=== PATIENT | male | born 1945 | race Caucasian/White ===

== ENCOUNTER 2020-08-03 07:39 | Outpatient (REF) | payer BC, SELFPAY | END 2020-08-03 07:40 | disposition home or self-care (01) | LOC: HO.LAB 07:39 | PROVIDERS: Visit Provider Internal Medicine | DX: Z20.828 Contact with and (suspected) exposure to other viral communicable diseases (principal) | CPT/HCPCS: C9803; U0003 ==

== ENCOUNTER 2020-10-16 07:28 | Outpatient (REF) | payer MEDICARE, SELFPAY ==
[2020-10-16 12:17] LABS: Alanine Aminotransferase 29 U/L (0-40); Albumin Level 4.1 g/dL (3.5-5.0); Alkaline Phosphatase 89 U/L (39-117); Anion Gap 12 (12-20); Aspartate Amino Transferase 24 U/L (5-37); Bilirubin Total 0.6 mg/dL (0.0-1.0); Blood Urea Nitrogen 31 mg/dL (9-16); Calcium 9.2 mg/dL (8.4-10.2); Carbon Dioxide 33 mmol/L (22-29); Chloride 99 mmol/L (96-108); Cholesterol 219 mg/dL; Estimated Glomerular Filt Rate 55; Glucose Fasting 88 mg/dL (60-99); HDL Cholesterol 46 mg/dL; LDL Cholesterol Calculated 151 mg/dl; Potassium 5.3 mmol/L (3.3-5.1); Sodium 139 mmol/L (135-145); Total Protein 6.8 g/dL (6.5-8.0); Triglycerides 111 mg/dL
== END 2020-10-16 07:29 | disposition home or self-care (01) ==
LOC: HO.MANLR 07:28
PROVIDERS: PCP Internal Medicine; Visit Provider Physician Assistant
DX: N18.9 Chronic kidney disease, unspecified (principal)
CPT/HCPCS: 36415; 80053; 80061

== ENCOUNTER 2020-11-01 10:27 | Outpatient (REF) | payer MEDICARE, SELFPAY ==
[2020-11-01 13:31] LABS: Alanine Aminotransferase 26 U/L (0-40); Albumin Level 4.2 g/dL (3.5-5.0); Alkaline Phosphatase 104 U/L (39-117); Anion Gap 14 (12-20); Aspartate Amino Transferase 23 U/L (5-37); Bilirubin Total 0.4 mg/dL (0.0-1.0); Blood Urea Nitrogen 26 mg/dL (9-16); Calcium 9.5 mg/dL (8.4-10.2); Carbon Dioxide 34 mmol/L (22-29); Chloride 98 mmol/L (96-108); Estimated Glomerular Filt Rate > 60; Glucose Random 73 mg/dL (60-115); Potassium 5.1 mmol/L (3.3-5.1); Sodium 141 mmol/L (135-145)
== END 2020-11-01 10:28 | disposition home or self-care (01) ==
LOC: HO.MANLDS 10:27
PROVIDERS: PCP Internal Medicine; Visit Provider Physician Assistant
DX: E87.5 Hyperkalemia (principal)
CPT/HCPCS: 36415; 80053

== ENCOUNTER 2021-04-18 07:33 | Outpatient (REF) | payer MEDICARE, SELFPAY ==
[2021-04-18 12:12] LABS: Alanine Aminotransferase 23 U/L (0-40); Alkaline Phosphatase 83 U/L (39-117); Anion Gap 11 (12-20); Aspartate Amino Transferase 22 U/L (5-37); Bilirubin Total 0.5 mg/dL (0.0-1.0); Blood Urea Nitrogen 24 mg/dL (9-16); Calcium 9.6 mg/dL (8.4-10.2); Carbon Dioxide 33 mmol/L (22-29); Chloride 101 mmol/L (96-108); Cholesterol 209 mg/dL; Estimated Glomerular Filt Rate > 60; Glucose Fasting 82 mg/dL (60-99); HDL Cholesterol 49 mg/dL; LDL Cholesterol Calculated 136 mg/dl; Potassium 4.4 mmol/L (3.3-5.1); Sodium 141 mmol/L (135-145); Total Protein 6.8 g/dL (6.5-8.0); Triglycerides 120 mg/dL
== END 2021-04-18 07:34 | disposition home or self-care (01) ==
LOC: HO.MANLDS 07:33
PROVIDERS: PCP Internal Medicine; Visit Provider Physician Assistant
DX: N18.9 Chronic kidney disease, unspecified (principal)
CPT/HCPCS: 36415; 80053; 80061

== ENCOUNTER 2021-11-07 08:22 | Outpatient (REF) | payer MEDICARE, SELFPAY ==
[2021-11-07 11:28] LABS: Cholesterol 209 mg/dL; HDL Cholesterol 44 mg/dL; LDL Cholesterol Calculated 142 mg/dl; Triglycerides 117 mg/dL
== END 2021-11-07 08:23 | disposition home or self-care (01) ==
LOC: HO.MANLDS 08:22
PROVIDERS: PCP Physician Assistant; Visit Provider Physician Assistant
DX: N18.9 Chronic kidney disease, unspecified (principal)
CPT/HCPCS: 36415; 80061

== ENCOUNTER 2022-02-09 11:10 | Outpatient (REF) | payer MEDICARE, SELFPAY ==
[2022-02-09 13:12] LABS: Free T4 (Free Thyroxine) 1.03 ng/dL (0.71-1.85)
== END 2022-02-09 11:11 | disposition home or self-care (01) ==
LOC: HO.MANLDS 11:10
PROVIDERS: Visit Provider Physician Assistant
DX: E04.1 Nontoxic single thyroid nodule (principal)
CPT/HCPCS: 36415; 84439; 84443

== ENCOUNTER 2022-02-18 09:56 | Outpatient (REF) | payer MEDICARE, SELFPAY ==
[2022-02-18 12:02] LABS: Iron 73 mcg/dL (45-160); Percent Iron Saturation 27 % (15-50); Total Iron Binding Capacity 274 mcg/dL (228-428); Unsaturated Iron Binding 201 ug/dL
[2022-02-18 12:06] LABS: Ferritin 191 ng/mL (20-250)
== END 2022-02-18 09:57 | disposition home or self-care (01) ==
LOC: HO.MANLDS 09:56
PROVIDERS: Visit Provider Physician Assistant
DX: D64.9 Anemia, unspecified (principal)
CPT/HCPCS: 36415; 82728; 83540

== ENCOUNTER 2022-05-12 08:43 | Outpatient (REF) | payer MEDICARE, SELFPAY ==
[2022-05-12 11:36] LABS: Cholesterol 216 mg/dL; HDL Cholesterol 48 mg/dL; LDL Cholesterol Calculated 145 mg/dl; Triglycerides 115 mg/dL
== END 2022-05-12 08:44 | disposition home or self-care (01) ==
LOC: HO.MANLDS 08:43
PROVIDERS: Visit Provider Physician Assistant
DX: E78.2 Mixed hyperlipidemia (principal)
CPT/HCPCS: 36415; 80061

== ENCOUNTER 2022-11-11 07:36 | Outpatient (REF) | payer MEDICARE, SELFPAY ==
[2022-11-11 08:49] LABS: MANUAL DIFF FLAG NO
[2022-11-11 11:49] LABS: Estimated Average Glucose 108 mg/dL; Hemoglobin A1c % 5.4 %
[2022-11-11 11:53] LABS: Basophils Percent Auto 0.5 % (0-2); Eosinophils Absolute Auto 0.2 X10*3/uL (0.0-0.4); Eosinophils Percent Auto 5.1 % (0-4); Hematocrit 39.4 % (42.0-52.0); Hemoglobin 12.8 g/dl (14.0-18.0); Lymphocytes Absolute Auto 1.3 X10*3/uL (1.2-4.9); Mean Corpuscular HGB Conc 32.5 g/dl (31.0-36.0); Mean Corpuscular Hemoglobin 29.2 pg (27.0-33.0); Mean Platelet Volume 9.6 fL (9.4-12.4); Monocytes Absolute Auto 0.4 X10*3/uL (0.1-1.2); Monocytes Percent Auto 10.4 % (2-11); Neutrophils Absolute Auto 1.9 x10*3/uL (2.0-8.3); Platelet Count 196 X10*3/uL (160-400); Red Blood Count 4.38 X10*6/uL (4.60-5.80); Red Cell Distribution Width 12.8 % (11.0-16.0); White Blood Count 3.7 X10*3/uL (4.8-10.8)
[2022-11-11 12:24] LABS: Alanine Aminotransferase 29 U/L (0-40); Alkaline Phosphatase 101 U/L (39-117); Anion Gap 14 (12-20); Aspartate Amino Transferase 29 U/L (5-37); Bilirubin Total 0.7 mg/dL (0.0-1.0); Blood Urea Nitrogen 27 mg/dL (9-16); Calcium 9.6 mg/dL (8.4-10.2); Carbon Dioxide 30 mmol/L (22-29); Chloride 103 mmol/L (96-108); Cholesterol 210 mg/dL; Estimated Glomerular Filt Rate 59; Glucose Random 93 mg/dL (60-115); HDL Cholesterol 46 mg/dL; LDL Cholesterol Calculated 141 mg/dl; Potassium 4.9 mmol/L (3.3-5.1); Prostate Specific Antigen 5.66 ng/mL (<0.05-4.0); Sodium 142 mmol/L (135-145); Total Protein 6.7 g/dL (6.5-8.0); Triglycerides 119 mg/dL
== END 2022-11-11 07:37 | disposition home or self-care (01) ==
LOC: HO.MANLDS 07:36
PROVIDERS: Visit Provider Physician Assistant
DX: Z12.5 Encounter for screening for malignant neoplasm of prostate (principal); I10 Essential (primary) hypertension
CPT/HCPCS: 36415; 80053; 80061; 83036; 84153; 85025

== ENCOUNTER 2023-02-16 | Outpatient (REF) | payer MEDICARE, SELFPAY ==
[2023-02-16 12:08] LABS: Alanine Aminotransferase 45 U/L (0-40); Albumin Level 4.1 g/dL (3.5-5.0); Alkaline Phosphatase 91 U/L (39-117); Anion Gap 14 (12-20); Aspartate Amino Transferase 38 U/L (5-37); Bilirubin Total 0.6 mg/dL (0.0-1.0); Blood Urea Nitrogen 27 mg/dL (9-16); Carbon Dioxide 30 mmol/L (22-29); Chloride 103 mmol/L (96-108); Cholesterol 129 mg/dL; Estimated Glomerular Filt Rate > 60; Glucose Random 93 mg/dL (60-115); HDL Cholesterol 47 mg/dL; LDL Cholesterol Calculated 66 mg/dl; Potassium 4.5 mmol/L (3.3-5.1); Sodium 142 mmol/L (135-145); Total Protein 7.2 g/dL (6.5-8.0); Triglycerides 81 mg/dL
== END 2023-02-16 00:01 | disposition home or self-care (01) ==
LOC: HO.MANLDS
PROVIDERS: Visit Provider Physician Assistant
DX: I10 Essential (primary) hypertension (principal)
CPT/HCPCS: 36415; 80053; 80061

== ENCOUNTER 2023-09-03 07:28 | Outpatient (REF) | payer MEDICARE, SELFPAY | END 2023-09-03 07:29 | disposition home or self-care (01) | LOC: HO.MANLDS 07:28 | PROVIDERS: Visit Provider Physician Assistant | DX: I13.0 Hypertensive heart and chronic kidney disease with heart failure and stage 1 through stage 4 chronic kidney disease, or unspecified chronic kidney disease (principal); N18.9 Chronic kidney disease, unspecified; I50.9 Heart failure, unspecified; E78.5 Hyperlipidemia, unspecified | CPT/HCPCS: 36415; 80053; 80061; 82306; 85025 ==

== ENCOUNTER 2023-10-27 10:19 | Outpatient (REF) | payer MEDICARE, SELFPAY ==
[2023-10-27 12:44] LABS: MANUAL DIFF FLAG NO
[2023-10-27 13:07] LABS: Basophils Percent Auto 0.7 % (0-2); Eosinophils Absolute Auto 0.2 X10*3/uL (0.0-0.4); Eosinophils Percent Auto 5.1 % (0-4); Hematocrit 38.9 % (42.0-52.0); Hemoglobin 12.8 g/dl (14.0-18.0); Imm Gran Abs Auto 0.01 X10*3/uL (0.00-0.03); Imm Gran Pct Auto 0.2 % (0.0-0.4); Lymphocytes Absolute Auto 1.3 X10*3/uL (1.2-4.9); Lymphocytes Percent Auto 29.2 % (20-40); Mean Corpuscular HGB Conc 32.9 g/dl (31.0-36.0); Mean Corpuscular Hemoglobin 29.2 pg (27.0-33.0); Mean Corpuscular Volume 88.6 fL (80.0-98.0); Mean Platelet Volume 9.6 fL (9.4-12.4); Monocytes Absolute Auto 0.5 X10*3/uL (0.1-1.2); Monocytes Percent Auto 12.2 % (2-11); Neutrophils Absolute Auto 2.3 x10*3/uL (2.0-8.3); Neutrophils Percent Auto 52.6 % (45-73); Platelet Count 184 X10*3/uL (160-400); Red Blood Count 4.39 X10*6/uL (4.60-5.80); Red Cell Distribution Width 12.5 % (11.0-16.0); White Blood Count 4.4 X10*3/uL (4.8-10.8)
[2023-10-27 13:09] LABS: Alanine Aminotransferase 43 U/L (0-40); Albumin Level 4.1 g/dL (3.5-5.0); Alkaline Phosphatase 98 U/L (39-117); Anion Gap 8 (12-20); Aspartate Amino Transferase 41 U/L (5-37); Bilirubin Total 0.6 mg/dL (0.0-1.0); Blood Urea Nitrogen 27 mg/dL (9-16); Calcium 10.1 mg/dL (8.4-10.2); Carbon Dioxide 33 mmol/L (22-29); Chloride 102 mmol/L (96-108); Estimated Glomerular Filt Rate > 60; Glucose Random 89 mg/dL (60-115); Potassium 4.3 mmol/L (3.3-5.1); Sodium 139 mmol/L (135-145); Total Protein 7.3 g/dL (6.5-8.0)
[2023-10-31 22:09] LABS: NT-proBNP 100 pg/mL (<450)
== END 2023-10-27 10:20 | disposition home or self-care (01) ==
LOC: HO.MANLDS 10:19
PROVIDERS: Visit Provider Physician Assistant
DX: R05.2 Subacute cough (principal)
CPT/HCPCS: 36415; 80053; 83880; 85025

== ENCOUNTER 2024-03-27 07:28 | Outpatient (REF) | payer MEDICARE, SELFPAY ==
[2024-03-27 07:50] LABS: MANUAL DIFF FLAG NO
[2024-03-27 08:43] LABS: Basophils Percent Auto 0.5 % (0-2); Eosinophils Absolute Auto 0.2 X10*3/uL (0.0-0.4); Hematocrit 39.7 % (42.0-52.0); Hemoglobin 13.2 g/dl (14.0-18.0); Imm Gran Abs Auto 0.01 X10*3/uL (0.00-0.03); Imm Gran Pct Auto 0.2 % (0.0-0.4); Lymphocytes Absolute Auto 1.2 X10*3/uL (1.2-4.9); Mean Corpuscular HGB Conc 33.2 g/dl (31.0-36.0); Mean Corpuscular Hemoglobin 29.8 pg (27.0-33.0); Mean Corpuscular Volume 89.6 fL (80.0-98.0); Mean Platelet Volume 9.4 fL (9.4-12.4); Monocytes Absolute Auto 0.4 X10*3/uL (0.1-1.2); Monocytes Percent Auto 9.9 % (2-11); Neutrophils Absolute Auto 2.2 x10*3/uL (2.0-8.3); Neutrophils Percent Auto 55.4 % (45-73); Platelet Count 180 X10*3/uL (160-400); Red Blood Count 4.43 X10*6/uL (4.60-5.80); Red Cell Distribution Width 12.6 % (11.0-16.0)
[2024-03-27 09:21] LABS: Alanine Aminotransferase 37 U/L (0-40); Albumin Level 4.2 g/dL (3.5-5.0); Alkaline Phosphatase 93 U/L (39-117); Anion Gap 11 (12-20); Aspartate Amino Transferase 36 U/L (5-37); Bilirubin Total 0.6 mg/dL (0.0-1.0); Blood Urea Nitrogen 22 mg/dL (9-16); Carbon Dioxide 31 mmol/L (22-29); Chloride 102 mmol/L (96-108); Cholesterol 128 mg/dL (<200); Estimated Glomerular Filt Rate 59; Glucose Random 98 mg/dL (60-115); HDL Cholesterol 51 mg/dL (>40); LDL Cholesterol Calculated 59 mg/dL (<100); Potassium 4.3 mmol/L (3.3-5.1); Sodium 140 mmol/L (135-145); Total Protein 7.1 g/dL (6.5-8.0); Triglycerides 90 mg/dL (<150)
[2024-03-27 09:40] LABS: Vitamin D 25-OH Total 50.9 ng/mL (>30)
== END 2024-03-27 07:29 | disposition home or self-care (01) ==
LOC: HO.LAB 07:28
PROVIDERS: PCP Internal Medicine; Visit Provider Physician Assistant
DX: I13.0 Hypertensive heart and chronic kidney disease with heart failure and stage 1 through stage 4 chronic kidney disease, or unspecified chronic kidney disease (principal); N18.9 Chronic kidney disease, unspecified; E78.5 Hyperlipidemia, unspecified
CPT/HCPCS: 36415; 80053; 80061; 82306; 85025

== ENCOUNTER 2024-07-18 10:07 | Outpatient (REF) | payer MEDICARE, SELFPAY ==
[2024-07-18 14:33] LABS: Alanine Aminotransferase 47 U/L (0-40); Alkaline Phosphatase 101 U/L (39-117); Anion Gap 9 (12-20); Aspartate Amino Transferase 43 U/L (5-37); Bilirubin Total 0.6 mg/dL (0.0-1.0); Blood Urea Nitrogen 23 mg/dL (9-16); Calcium 9.2 mg/dL (8.4-10.2); Carbon Dioxide 34 mmol/L (22-29); Chloride 102 mmol/L (96-108); Estimated Glomerular Filt Rate 58; Glucose Random 85 mg/dL (60-115); Potassium 3.9 mmol/L (3.3-5.1); Sodium 141 mmol/L (135-145); Total Protein 6.9 g/dL (6.5-8.0)
== END 2024-07-18 10:08 | disposition home or self-care (01) ==
LOC: HO.MANLDS 10:07
PROVIDERS: Visit Provider Physician Assistant
DX: I13.0 Hypertensive heart and chronic kidney disease with heart failure and stage 1 through stage 4 chronic kidney disease, or unspecified chronic kidney disease (principal); N18.9 Chronic kidney disease, unspecified; I50.9 Heart failure, unspecified
CPT/HCPCS: 36415; 80053

== ENCOUNTER 2024-10-23 08:23 | Outpatient (REF) | payer MEDICARE, SELFPAY ==
--- OUTSIDE RECORDS SUMMARY | 2024-10-23 08:42 | XMS_ITS | Clinical Summary ---
Author Organization [facility] Address [address] [place] [address] Care Team Providers Care [employer] Name Role Phone Joe Virgen DO Primary Care Provider [phone] Allergies Active Allergy Reactions Criticality Noted Date Comments Codeine Other (See Comments) 08/02/2017 Oxycodone Other (See Comments) 12/01/2017 Medications Medication Sig Dispensed Refills Start Date End Date Status dilTIAZem (TIAZAC) 300 MG 24 hr capsule Take 300 mg by mouth. 0 Active dilTIAZem (CARDIZEM CD) 300 MG 24 hr capsule take 1 capsule by mouth once daily 0 12/14/2017 Active hydrALAZINE (APRESOLINE) 25 MG tablet Take 25 mg by mouth. 0 Active hydrALAZINE (APRESOLINE) 25 MG tablet 0 11/27/2017 Active indomethacin (INDOCIN SR) 75 MG CR capsule 0 11/27/2017 Acti ve lisinopril (PRINIVIL,ZESTRIL) tablet 40 mg 0 11/27/2017 Active Multiple Vitamin (MULTI-VITAMIN) Take 1 tablet by mouth. 0 Active spironolactone (ALDACTONE) tablet 25 mg 0 11/27/2017 Active traMADol (ULTRAM) 50 MG tablet Take 50 mg by mouth. 0 12/10/2017 Active Active Problems Problem Noted Date Diagnosed Date Elevated prostate specific antigen (PSA) Hydrocele, unspecified Family History Medical History Relation Name Comments Hypertension Mother Relation Name Status Comments Mother Social History Tobacco Use Types Packs/Day Years Used Date Smoking Tobacco: Never Smokeless Tobacco: Never Sex and Gender Information Value Date Recorded Sex Assigned at Not on file Gender Identity Not on file Sexual Orientation Not on file Last Filed Vital Signs Vital Sign Reading Time Taken Comments Blood Pressure - - Pulse - - Temperature - - Respiratory Rate - - Oxygen Saturation - - Inhaled Oxygen Concentration - - Weight 119.8 kg (264 lb 3.2 oz) 018 10:28 AM EDT Height 170.2 cm (5' 7 ) 12/24/2017 10:2 8 AM EDT Body Mass Index 41.38 12/24/2017 10:28 AM EDT Plan of Treatment Health Maintenance Due Date Last Done Comments Hepatitis C Screening 1945 COVID-19 Vaccine (#1) 1947 Depression Screening 1959 Preventative Health Evaluation 1965 DTap / Tdap / Td (1 - Tdap) 1966 Shingrix-Zoster Vaccine (1 of 2) 1997 Fall Risk Assessment 2012 Pneumococcal Vaccine (1 of 1 - PCV) 2012 RSV Adult > 60+ Yrs or Pregn ant (1 - 1-dose 75+ series) 2022 Influenza Vaccine (#1) 2024 Hepatitis B Vaccines Aged Out No long er eligible based on patient's age to complete this topic RSV Ped < 20 months Aged Out No longe r eligible based on patient's age to complete this topic Care Teams [employer] Relationship Specialty Start Date End Date Joe Virgen DO [address] [place] [address] PCP - General Internal Medicine 12/16/17
--- OUTSIDE RECORDS SUMMARY | 2024-10-23 08:43 | XMS_ITS | Data Portability ---
Author Organization [facility], Home Service Address [address] [place] [address] Assessment Encounter Date Assessment Date Assessment LastModified by Organization Details LastModified Time 09/08/2023 09/08/2023 Patient agreed and verbally consents to this audio and video Telehealth appt via a secure platform [email or web address] Not available 09/08/2023 16:03:48 Plan of Treatment Reminders Order Date Submit Date Provider Last Modified By Organization Details Last Modified Time Details Appointments FOLLOW UP 15 2024 10:30A LIYAH ROQUE Not available Not available Not available Lab CMP, serum or plasma 2023 024 [facility], [address] [place] [address], [id number], 11/26/2023 09:37:12 lipid panel, serum 2023 024 [facility], [address] [place] [address], [id number], 11/26/2023 09:37:12 CBC w/ auto diff 2023 024 [facility], [address] [place] [address], [id number], 11/26/2023 09:37:12 CMP, serum or plasma 2023 024 [facility], [address] [place] [address], [id number], 10/28/2023 11:18:07 CBC w/ auto diff 2023 [facility], [address] [place] [address], [place], [address], 10/28/2023 11:18:07 pro BNP (pro B-type natriuret ic peptide), serum or plasma 2023 [facility], [address] [place] [address], [place], [address], 11/01/2023 11:40:23 Referral None recorded. Procedures None recorded. Surgeries None recorded. Imaging None recorded. Medication Orders loratadin e 10 mg tablet 2023 [facility] #[id number], [address], [place], [id number], 07/21/2024 12:00:55 bupropion HCl XL 300 mg 24 hr tablet, extended release 2023 [facility] #36608, [address], [place], [id number], 11/26/2023 09:34:18 prednison e 10 mg tablet [address] [facility] #05314, [address], [place], [id number], 11/26/2023 09:32:54 bupropion HCl SR 150 mg tablet,12 hr sustained -release [address] [facility] #04365, [address], [place], [id number], 11/26/2023 09:33:52 albuterol sulfate HFA 90 mcg/actua tion aerosol inhaler 2023 [facility] #51792, [address], [place], [id number], 10/27/2023 10:00:19 amoxicill in 500 mg tablet 2023 024 [email or web address] [facility] #61419, [address], [place], [id number], 07/21/2024 11:30:22 bupropion HCl SR 100 mg tablet,12 hr sustained -release 2023 024 [email or web address] [facility] #08986, [address], [place], [id number], 10/27/2023 10:03:17 Patient TargetsNo targets recorded. Patient Instructions Encounter Date Encounter Id Patient Instructions Last Modified By Organization Details Last Modified Time 04/14/2024 [id number] jerica [email or web address] Not available 03/01 11:05:37 Reason for Referral None Reported. Results Created Date Observation Date Name Description Value Unit Range Abnormal Flag Note LastModifiedBy Organization Detail LastModifiedTime 09/20/1909/17/2023 US, carot id arter y No observ [facility], [address], 09/20/2023 16:55:25 09/22/19 24 09/15/2023 trans -thor acic echoc ardio gram (TTE) (PROC ) No observ ation record ed. [email or web address] [facility], [address], 09/23/2023 21:44:30 Result Notes None recorded. Problems Name Problem SNOMED Code Status Onset Date Resolution Date Notes Provider Name and Address Organization Details Recorded Time Ventricul ar premature beats 53543110 Active 2018 Not Available [facility] 3 11:53:41 Aortic valve stenosis 94621803 Active 2018 mild per echo 9 Not Available [facility] 3 11:53:41 Essential hypertens ion 88484586 Active 2017 Not Available [facility] 3 11:53:41 Osteoarth ritis 252787685 Active 2017 Not Available [facility] 3 11:53:41 History of left total knee replaceme nt 947769972020 9105 Active 2017 Not Available [facility] 3 11:53:41 Anemia 537050187 Active 2017 Not Available [facility] 3 11:53:41 Impaired fasting glycemia 590517592 Active 2017 Not Available [facility] 3 11:53:41 Joint pain 65649465 Active 2017 Not Available [facility] 3 11:53:41 Chronic kidney disease 559379749 Active 2017 Not Available [facility] 3 11:53:41 Diastasis recti 63948034 Active 2020 Not Available [facility] 3 11:53:41 Thyroid nodule 782669597 Active 2021 Not Available [facility] 3 11:53:41 Hordeolum externum of lower eyelid of right eye 979856977717 104 Active 2021 Not Available [facility] 3 11:53:41 Thoracic back pain 697468755 Active 2021 Not Available [facility] 3 11:53:41 Low back pain 652142409 Active 2021 Not Available [facility] 3 11:53:41 Flank pain 715349195 Active 2021 Not Available [facility] 3 11:53:41 Hypertrig lyceridem ia 645959191 Active 2021 Not Available [facility] 3 11:53:41 Cough 85977808 Active 2021 Not Available [facility] 3 11:53:41 Constipat ion 54109351 Active 2021 Not Available [facility] 3 11:53:41 Gout 77212040 Active 2022 Not Available [facility] 3 11:53:41 Dupuytren 's contractu re of finger 634416992 Active 2022 Not Available [facility] 3 11:53:41 Carotid artery stenosis 21579144 Active 2022 Not Available [facility] 3 11:53:41 Carotid artery stenosis 12736917 Active 2022 Not Available [facility] 3 11:53:41 Prostate specific antigen above reference range 576962932 Active 2022 Not Available [facility] 3 11:53:41 Edema of lower extremity 177859104 Active 2022 Not Available [facility] 3 11:53:40 Osteoarth ritis of knee 800582129 Active 2022 Not Available [facility] 3 11:53:41 Degenerat lorenza joint disease of hand 44417106 Active 2022 Not Available [facility] 3 11:53:41 Degenerat lorenza joint disease of hand 42660123 Active 2022 Not Available [facility] 3 11:53:41 Contractu re of joint of hand 52126731 Active 2022 Not Available [facility] 3 11:53:41 Contractu re of joint of hand 17524839 Active 2022 Not Available [facility] 3 11:53:41 Benign prostatic hyperplas ia 100078935 Active 2022 Not Available [facility] 3 11:53:41 Hyperlipi demia 30871798 Active 2022 Not Available [facility] 3 11:53:41 Anxiety 45531924 Active 2023 LIYAH RODRIGUEZ [address] [place], [address], [facility] 4 16:04:57 Respirato ry tract congestio n and cough 295100210 Active 2023 LIYAH RODRIGUEZ [address] [place], [address], [facility] 4 09:58:50 Wheezing 30510620 Active 2023 LIYAH RODRIGUEZ [address] [place], [address], [facility] 4 10:08:28 Neuropath y 270812118 Active 2023 LIYAH RODRIGUEZ [address] [place], [address], [facility] 4 10:09:38 Allergic rhinitis 72557263 Active 2023 LIYAH RODRIGUEZ [address] [place], [address], [facility] 4 12:00:12 Acute bronchiti s 41473286 Active 2023 LIYAH RODRIGUEZ [address] [place], [address], [facility] 4 11:45:21 Problem Notes None recorded. Procedures Surgical History None recorded. Imaging Results Imaging Date Name Status LastModified by Organization Details LastModified Time 09/17/2023 , carotid artery completed [email or web address] [address], [address], 09/20/2023 16:55:25 09/15/2023 trans-thoracic echocardiogram (TTE) (PROC) completed [email or web address] [address], [address], 09/23/2023 21:44:30 Procedure Notes None recorded. Medical Equipment None Reported. Allergies Allergen ID Allergen Name Allergen Category Reaction Reaction Severity Criticality Documentation Date Start Date Code Code System Note Provider Name and Address Organization Details Recorded Time 72 codeine medicatio n nausea Not available Not available 10/27/2017 2670 RxNorm Joe lazcano [facility] 8 12:16:49 73 oxycodone medicatio n vomiting Not available Not available 10/27/2017 7804 RxNorm Lorraine lazcano [place] [facility] 8 12:20:58 74 acetamino phen / oxycodone medicatio n hallucina tions Not available Not available 10/27/2017 33392 3 RxNorm Lorraine lazcano [facility] 8 12:21:21 Medications Name Sig Start Date Stop Date Status Note LastModified by Organization Details LastModified Time turmeric 450mg capsules TAKE 2 CAPSULES DAILY BY MOUTH active Not Available Not Available No t Available losartan 50 mg tablet TAKE 1 TABLET BY MOUTH DAILY active Not Available Not Available No t Available furosemid e 40 mg tablet TAKE 1 TABLET BY MOUTH EVERY DAY NEEDED 10/28 completed Not Available Not Available Not Available desonide 0.05 % topical cream APPLY TWICE DAILY TO NOSE AND EYEBROWS FOR 2 WEEK THEN NEEDED 11/16 completed Not Available Not Available Not Available bupropion HCl SR 150 mg tablet,12 hr sustained -release TAKE 1 TABLET BY MOUTH EVERY DAY 11/25 completed Not Available Not Available Not Available prednison e 10 mg tablet 40 mg x 2 days30 mg x 2 days20 mg x 2 days10 mg x 2 days active Not Available Not Available No t Available ketoconaz ole 2 % shampoo APPLY SHAMPOO 2 TO 4 TIMES PER WEEK. ALTERNAT E WITH NORMAL SHAMPOO active Not Available Not Available No t Available omega-3 fatty acids 1,000 mg capsule Take 1 capsule every day by oral route for 90 days. 2021 active Not Available Not Available Not Avai lable lisinopri l 20 mg-hydroc hlorothia zide 12.5 mg tablet 11/30 completed Not Available Not Available Not Available azithromy rosalina 250 mg tablet 09/25 completed Not Available Not Available Not Available fluoroura cil 5 % topical cream APPLY TWICE DAILY TO ROUGH AREAS ON FOREHEAD FOR 14 DAYS. EXPECT REDNESS AND IRRITATI ON. AVOID SUN EXPOSURE active Not Available Not Available No t Available hydralazi ne 25 mg tablet TAKE 1 TABLET BY MOUTH THREE TIMES DAILY 02/09 completed Not Available Not Available Not Available diltiazem ER 300 mg capsule,2 4 hr,extend ed release TAKE 1 CAPSULE BY MOUTH EVERY DAY 07/27 completed Not Available Not Available Not Available clopidogr el 75 mg tablet TAKE 1 TABLET BY MOUTH EVERY DAY 10/27 completed Not Available Not Available Not Available tramadol 50 mg tablet TAKE 2 TABLETS BY MOUTH EVERY 4 TO 6 HOURS FOR 14 DAYS NEEDED 07/21 completed Not Available Not Available Not Available spironola ctone 25 mg tablet 02/04 completed Not Available Not Available Not Available bupropion HCl SR 100 mg tablet,12 hr sustained -release TAKE 1 TABLET BY MOUTH EVERY DAY 10/27 completed Not Available Not Available Not Available amoxicill in 500 mg tablet TAKE 1 TABLET BY MOUTH EVERY 8 HOURS FOR 4 DAYS 07/21 completed Not Available Not Available Not Available lidocaine -prilocai ne 2.5 %-2.5 % topical cream APPLY TOPICALL Y TO THE AFFECTED AREA 1 TIME FOR 1 DOSE 11/16 completed Not Available Not Available Not Available cefadroxi l 500 mg capsule TAKE 1 CAPSULE BY MOUTH TWICE DAILY 04/23 completed Not Available Not Available Not Available diltiazem CD 300 mg capsule,e xtended release 24 hr TAKE 1 CAPSULE BY MOUTH EVERY DAY 07/27 completed Not Available Not Available Not Available erythromy rosalina 5 mg/gram (0.5 %) eye ointment APPLY 1 CM RIBBON INTO THE LOWER CONJUNCT IVAL SAC(S) IN THE AFFECTED EYE(S) BY OPHTHALM IC ROUTE 3 TIMES PER DAY 05/22 completed Not Available Not Available Not Available omeprazol e 20 mg capsule,d elayed release TAKE 1 CAPSULE BY MOUTH EVERY MORNING 1 HOUR BEFORE MEALS 10/28 completed Not Available Not Available Not Available hydrocort isone 2.5 % topical cream APPLY TWICE DAILY TO NOSE AND EYEBROWS FOR 2 WEEKS THEN NEEDED active Not Available Not Available No t Available hydralazi ne 50 mg tablet TAKE 3 TABLETS BY MOUTH EVERY DAY active Not Available Not Available No t Available desonide 0.05 % lotion 12/19 completed Not Available Not Available Not Available furosemid e 20 mg tablet TAKE 1 TABLET BY MOUTH TWICE DAILY NEEDED active Not Available Not Available No t Available azelastin e 137 mcg (0.1 %) nasal spray USE 2 SPRAYS IN EACH NOSTRIL TWICE DAILY DIRECTED active Not Available Not Available No t Available albuterol sulfate HFA 90 mcg/actua tion aerosol inhaler INHALE 2 PUFFS BY MOUTH EVERY 4 HOURS NEEDED active Not Available Not Available No t Available colchicin e 0.6 mg tablet TAKE 1 TABLET BY MOUTH EVERY DAY NEEDED active Not Available Not Available No t Available indometha rosalina ER 75 mg capsule,e xtended release TAKE 1 CAPSULE BY MOUTH DAILY WITH FOOD 07/27 completed 05/22/22 - cutting back Not Available Not Available Not Available lisinopri l 40 mg tablet TAKE 1 TABLET BY MOUTH EVERY DAY 07/27 completed Not Available Not Available Not Available fluticaso ne propionat e 50 mcg/actua tion nasal spray,sh[employer] pension SHAKE LIQUID AND USE 2 SPRAYS IN EACH NOSTRIL EVERY DAY active Not Available Not Available No t Available loratadin e 10 mg tablet Take 1 tablet every day by oral route for 90 days. 2023 active Not Available Not Available Not Avai lable ciclopiro x 1 % shampoo 12/19 completed Not Available Not Available Not Available rosuvasta tin 20 mg tablet TAKE 1 TABLET BY MOUTH EVERY DAY active Not Available Not Available No t Available bupropion HCl XL 300 mg 24 hr tablet, extended release TAKE 1 TABLET BY MOUTH EVERY DAY active Not Available Not Available No t Available aspirin TAKE ONE 81 TAB QD active Not Available Not Available No t Available Multivita min 50 Plus take once a day active Not Available Not Available No t Available omega-3 fatty acids-fis h oil 300 mg-1,000 mg capsule TAKE 1 CAPLET BY MOUTH DAILY 11/16 completed Not Available Not Available Not Available Prevnar 13 (PF) 0.5 mL intramusc ular syringe 12/19 completed Not Available Not Available Not Available turmeric 450 mg-turmer ic root extract 50 mg capsule TAKE 2 CAPSULES BY MOUTH EVERY DAY active Not Available Not Available No t Available Fluad 65yr up(PF)45 mcg(15 mcgx3)/0. 5 mL intramusc ular syringe 02/04 completed Not Available Not Available Not Available Shingrix (PF) 50 mcg/0.5 mL intramusc ular suspensio n, kit 04/23 completed Not Available Not Available Not Available Fluad 65yr up(PF)45 mcg(15 mcgx3)/0. 5 mL intramusc ular syringe 12/19 completed Not Available Not Available Not Available omega-3 300 mg-dha 120 mg-epa 180 mg-fish oil 1,000 mg capsule TAKE 1 CAPSULE BY MOUTH DAILY active Not Available Not Available No t Available Vitals Date Recorded Body height Body mass index (BMI) Body weight Heart rate Oxygen saturation Oxygen saturation in Arterial blood by Pulse oximetry Systolic blood pressure Diastolic blood pressure Provider Name and Address Organization Details Last Updated DateTime 4 169.55 cm 37.6 kg/m2 934270. 98 g 77 /min 98 % 98 % 120 mm[Hg] 60 mm[Hg] Esme Peraza [facility] 4 09:51:44 Date Recorded Body height Body mass index (BMI) Body weight Heart rate Oxygen saturation Oxygen saturation in Arterial blood by Pulse oximetry Systolic blood pressure Diastolic blood pressure Provider Name and Address Organization Details Last Updated DateTime 4 169.55 cm 37.6 kg/m2 604905. 98 g 71 /min 100 % 100 % 130 mm[Hg] 70 mm[Hg] Esme Peraza [facility] 4 09:29:28 Date Recorded Body height Body mass index (BMI) Body weight Heart rate Oxygen saturation Oxygen saturation in Arterial blood by Pulse oximetry Systolic blood pressure Diastolic blood pressure Provider Name and Address Organization Details Last Updated DateTime 4 169.55 cm 38 kg/m2 808822. 04 g 74 /min 96 % 96 % 130 mm[Hg] 74 mm[Hg] Aliza Mendes [facility] 4 10:29:44 Date Recorded Body height Body mass index (BMI) Body weight Heart rate Oxygen saturation Oxygen saturation in Arterial blood by Pulse oximetry Systolic blood pressure Diastolic blood pressure Provider Name and Address Organization Details Last Updated DateTime 4 169.55 cm 38.4 kg/m2 039549. 31 g 73 /min 96 % 96 % 138 mm[Hg] 68 mm[Hg] Aliza Mendes [facility] 4 11:33:49 Social History Question Answer Notes LastModified by Organizat ion Details LastModified Time Tobacco Smoking Status Never Smoker Not Available [facility] 07/02/2020 03:36:24 What Was The Date Of Your Most Recent Tobacco Screening? 07/21/2024 [email or web address] Information not available 07/21/2024 Do You Or Have You Ever Used Any Other Forms Of Tobacco Or Nicotine? No [email or web address] Information not available 11/16/2022 Sex: Unknown Functional Status None recorded. Mental Status None recorded. Family History Relationship Description Onset Age of this Age Resolved Age Notes LastModified by Organization Details LastModified Time Unspecified Relation Aneurysm [email or web address] Not available 10/27/19 12:27:31 Medical History No medical history recorded. Immunizations Vaccine Type Date Status Note Provider Nam e and Address Organization Details Recorded Time Influenza, split virus, quadrivalent, preservative 8 completed Not Available [facility] 07/14/2022 04:36:11 Pneumococcal conjugate PCV 13 8 completed Not Available [facility] 07/14/2022 04:36:11 COVID-19, mRNA, LNP-S, PF, 30 mcg/0.3 mL dose 1 completed Not Available [facility] 07/14/2022 04:36:11 COVID-19, mRNA, LNP-S, PF, 30 mcg/0.3 mL dose 1 completed Not Available [facility] 07/14/2022 04:36:12 Influenza, split virus, quadrivalent, preservative 1 completed Not Available [facility] 07/14/2022 04:36:12 COVID-19, mRNA, LNP-S, PF, 30 mcg/0.3 mL dose 2 completed Tanvi lazcano [facility] 09/21/2022 08:18:53 COVID-19, mRNA, LNP-S, PF, 50 mcg/0.5 mL dose 1 completed Tanvi lazcano [facility] 09/21/2022 08:19:33 COVID-19, mRNA, LNP-S, PF, 30 mcg/0.3 mL dose 2 completed Tanvi lazcano [facility] 09/21/2022 08:19:59 influenza, unspecified formulation 2 completed Radha lazcano [facility] 11/16/2022 14:11:12 SARS-COV-2 (COVID-19) vaccine, UNSPECIFIED 3 completed Ligia Lira jaleesa [facility] 06/02/2023 15:15:28 Respiratory syncytial virus (RSV), unspecified 3 completed Ligia Lira jaleesa [facility] 07/05/2023 09:02:19 zoster live 8 completed Not Available [facility] 07/14/2022 04:36:12 zoster live 9 completed Not Available [facility] 07/14/2022 04:36:11 Influenza, split virus, quadrivalent, preservative 9 completed Not Available [facility] 07/14/2022 04:36:11 Influenza, split virus, quadrivalent, preservative 0 completed Not Available [facility] 07/14/2022 04:36:12 Past Encounters Encounter ID Performer Location Encounter Start Date Encounter Closed Date Diagnosis/Indication Diagnosis SNOMED-CT Code Diagnosis ICD10 Code Diagnosis Note [id number] November [facility] [address] [facility] [place] [address] 11/30/2017 09:00:02 11/30/2017 09:40:28 Hypertensive disorder 24047849 I10 will put hard copy in lab for patient - CMP encouraged to implement cardiovasc ular exercise, pt states he's unable due to bad hips. he does walk a lot on the job. Anemia 310897174 D64.9 will put hard copy in lab for patient - CBC unclear cause of anemia- very mild. will monitor. have advised discontinu ing the alcohol to see if makes an impact, though I don't believe that 1 glass of wine per day should cause any significan t bone marrow suppressio n. Chronic ki dney disease 739490143 N18.9 will put hard copy in lab for patient- CMP Pt has become lax with hydration. Have advised he redouble his efforts as his kidney function seems to be declining once again after an almost near resolution . [id number] November David [facility] [address] [facility] [address] [facility] [place] [address] 02/04/2018 09:05:31 02/04/2018 09:59:32 Hyperkalemia 84530776 E87.5 has had twice, both times returning to normal on recheck will d/c spironolac tone and monitor leg swelling Anemia 251592966 D64.9 stable likely acd Chronic ki dney disease 010416118 N18.9 continued decline in gfr and increase in bun/creati ne after an initial improvemen t reinforced hydration will recheck after d/c of spironolac tone. Essential hypertension 14461835 I10 systolic elevated diastolic at goal will recheck after d/c of spironolac tone. may have to adjust bp meds again. Edema of l ower extremity 647486983 R60.0 will monitor after d/c of spironolac tone Chest pain 23742363 R07. 9 refuses any work up AMA. stressed that MS/ is a possibilit y if he chooses to ignore his sx. he understand s and still refuses. his is present who tries to urge him to have stress test, and patient states that he would not do anything even if the stress test was abnormal. he feels that because he didn't smoke like his brother and father, that he is less likely to have MS. I did tell him that despite that being true, does not make it any less compelling to have work up in setting of recurrent chest pain. after lengthy discussion his ultimate decision was to forgo cardiac work up AMA. he will f/u here in 1 month. I have advised him to f/u sooner if he changes his mind regarding work up. Dyspnea on exertion 6084 5006 R06.09 as above [id number] DON [facility] [address] [facility] [address] 03/07/2018 09:02:23 03/07/2018 10:03:07 Hyperkalemia 23065049 E87.5 normal as of today likely related to spironolac tone Anemia 122693447 D64.9 h/h slightly lower than prior, but iron, b12, folate all wnl likely acd, hopefully this will improve with continued improvemen t with kidney function Chronic ki dney disease 812686191 N18.9 GFR and CRP are greatly improved BUN still slightly elevated continue 4 bottles of water per day will remain of spironolac tone recheck in 2 months Essential hypertension 22975194 I10 systolic still slightly elevated, but close to goal diastolic at goal Edema of l ower extremity 174324618 R60.0 will monitor after d/c of spironolac tone there has been no change in ankle swelling he does continue to have it through the day, but elevates every night Impaired f asting glycemia 741755027 R73.01 AIC remains normal [id number] November DON [facility] [address] [facility] [address],[place] [address] 09/07/2018 08:46:34 09/07/2018 11:06:51 Impaired fasting glycemia 304777039 R73.01 AIC remains normal Osteoarthritis 913745028 M19.90 has CKD, really want to to try avoid NSAID USE, but pt debility too great without treatment. will continue indomethac in and continue to monitor kidney function pt accepts these risks he does see ortho for his joint pains Essential hypertension 43002942 I10 systolic still slightly elevated, but close to goal diastolic at goal work on low salt diet and exercise informatio n regarding diet counsellin g through weight loss surgery programs suggested Chronic ki dney disease 243646771 N18.9 GFR and CRP are greatly improved BUN still slightly elevated continue 4 bottles of water per day continue to monitor BP, low sugar to help improve maintain these values Anemia 577020724 D64.9 h/h slightly lower than prior, but iron, b12, folate all wnl likely acd, hopefully this will improve with continued improvemen t with kidney function Hyperlipidemia 00228167 E78.5 well controlled recheck labs in 6 months Body mass index 30+ - obesity 260086157 Z68.41 will consider diet counsellin g perhaps through weight loss surgery [id number] Elizabeth Cervantes NP, [facility] Internal Medicine [address] [facility],Ronda Hagan [facility] [address] 12/19/2018 09:35:44 12/19/2018 11:01:49 Essential hypertension 76588027 I10 follow Chronic ki dney disease 698247770 N18.9 will check cmp 3weeks Irregular heart beat 361 151104 R00.8 pt defers cardiology referral at this time Edema of l ower extremity 753805684 R60.0 strongly encouraged OTC compressio n stockings and low Na diet November David, [facility] Internal Medicine [address] [facility] [address] [place] [address] 02/10/2019 09:29:58 02/10/2019 10:48:04 Aortic valve stenosis 18557025 I35.0 Essential hypertension 84572321 I10 elevated recheck at f/u Edema of l ower extremity 487478067 R60.0 much better will check kidney function tests and adjust lasix dose as needed November David [facility] Internal Medicine [address] [facility] [address],[place] Hagan [facility] [address] 06/09/2019 08:52:39 06/09/2019 09:26:26 Aortic valve stenosis 76731058 I35.0 Essential hypertension 94023042 I10 stable Edema of l ower extremity 298561712 R60.0 stable continue compressio n Carpal feliz joel syndrome 87760689 G56.03 Impaired f asting glycemia 707943720 R73.01 AIC remains normal Chronic ki dney disease 833048613 N18.9 GFR and CRP remains normal BUN remains elevated continue 4 bottles of water per day continue to monitor BP, low sugar to help improve maintain these values Anemia 195770148 D64.9 h/h slightly lower than prior, but iron, b12, folate all wnl likely acd, hopefully this will improve with continued improvemen t with kidney function Posterior rhinorrhea 758 83549 R09.82 [id number] LIYAH RODRIGUEZ [facility] Internal Medicine [address] [facility] [address],[place] [facility] [place] [address] 02/14/2020 11:08:26 02/14/2020 11:50:41 Anemia 621072957 D64.9 doing well, levels looks Essential hypertension 71256403 I10 BP high today, states he had a stressed ride to office will floresita at next appt Aortic valve stenosis 60 605813 I35.0 stable, reported mild will do f/u echo in a year not interested in seeing cardiology Chronic ki dney disease 699316677 N18.9 CMP came back with good results, no abnormalit ies Impaired f asting glycemia 388658795 R73.01 A1c is 5.6 Hyperlipidemia 61538980 E78.5 will recheck in 3 months [id number] LIYAH RODRIGUEZ [facility] Internal Medicine [address] [facility] [address],[place] [address] 04/19/2020 10:14:01 04/19/2020 10:54:34 Adult health examination 001994342 Z00.00 BP 136/70, much improved from last few visits Screening for cardiovascular system disease 393857249 Z13.6 cholestero l borderline high states he has been working on will fu in 6 months for labs [id number] LIYAH RODRIGUEZ [facility] Internal Medicine [address] [facility] [address],[place] [address] 10/22/2020 08:51:14 10/22/2020 11:54:32 Essential hypertension 57184793 I10 BP recheck at end of appt was 124/82 Chronic ki dney disease 740131967 N18.9 CMP came back with good results, no abnormalit ies GFR increased from last time Impaired f asting glycemia 472891920 R73.01 A1c is 5.6% last check, doing well Anemia 572458989 D64.9 doing well, levels looks Hyperkalemia 34292291 E8 7.5 patient eats a lot of bananas and [id number] LIYAH RODRIGUEZ [facility] Internal Medicine [address] [facility] [address],[place] [address] 04/23/2021 09:15:31 04/23/2021 10:10:01 History of left total knee replacement 1466429197 934383 Z96.652 stable Impaired f asting glycemia 056180990 R73.01 A1c is 5.6% last check, doing well Essential hypertension 97488055 I10 BP recheck at end of appt was 124/82 Chronic ki dney disease 982252659 N18.9 CMP came back with good results, no abnormalit ies GFR increased from last time which is excellent Nasal congestion 4175352 0 R09.81 will set up a referral to discuss with ENT Hernia of anterior abdominal wall 364638117 K43.9 will set the exact size Sleep apnea 51626452 G47 .30 will set up for sleep medicine appt and home sleep study Edema of l ower extremity 582030428 R60.0 will repeat echo due to prior concerns about possible HF in the future Low back pain 202475608 M54.5 will fu with XR of low back given neuropathy down his legs and hip painhips are fine, possibly his low back [id number] LIYAH RODRIGUEZ [facility] Internal Medicine [address] [facility], [place] [address] 10/28/2021 14:06:02 10/29/2021 10:38:06 Impaired fasting glycemia 173569999 R73.01 A1c is 5.6% last check, doing well Essential hypertension 51494715 I10 BP fine today Ventricula r premature beats 34349915 I49.3 stable Hyperlipidemia 86941060 E78.2 will recheck in 3 months [id number] LIYAH RODRIGUEZ [facility] Internal Medicine [address] [facility], [place] [address] 02/09/2022 10:20:51 02/09/2022 11:42:01 Essential hypertension 26077372 I10 BP fine today Impaired f asting glycemia 493046516 R73.01 A1c is 5.6% last check, doing well Ventricula r premature beats 60473982 I49.3 stable Hyperlipidemia 82076826 E78.2 will recheck in 3 months Thyroid nodule 119871976 E04.1 will fu with US repeat and TSH repeat [id number] LIYAH RODRIGUEZ [facility] Internal [facility] [address] [facility], [place] [address] 04/06/2022 11:21:59 04/06/2022 12:21:42 Hordeolum externum of lower eyelid of right eye 6920899860 21670 H00.012 will start on erythromyc in ointment Thoracic back pain 69218 8004 M54.6 will f/u with XRs Low back pain 807941810 M54.59 will f/u with XRs [id number] LIYAH RODRIGUEZ Internal Medicine [address] [facility], [place] [address] 05/22/2022 11:34:14 05/22/2022 12:54:15 Essential hypertension 22525492 I10 BP fine today Aortic valve stenosis 60 121236 I35.0 stable, reported mild will do f/u echo in a year not interested in seeing cardiology Hypertriglyceridemia 302 508996 E78.2 suggested per specialist to start on omega 3 and curcumin for inflammati on Low back pain 022325472 M54.59 did really well with the acupunctur e Cough 21964032 R05.3 will f/u with internal audit manager referral with Dr. Whiteside [id number] LIYAH RODRIGUEZ [facility] Internal Medicine [address] [facility],[place] [address] 07/27/2022 09:35:29 07/27/2022 13:56:27 Essential hypertension 16550634 I10 BP excellent today Aortic valve stenosis 60 606919 I35.0 resolved with replacemen t procedure History of aortic valve replacement 9338135581 100 Z95.4 doing really well Constipation 28301955 K5 9.01 use miralax everydayin crease water intake and increase fiber intake 28527 LIYAH RODRIGUEZ [facility] Internal Medicine [address] [facility],[place] [address] 09/21/2022 14:17:45 09/21/2022 16:05:02 Aortic valve stenosis 26699051 I35.0 stable since TAVR procedure, doing really well Essential hypertension 39826847 I10 BP excellent today Screening for malignant neoplasm of prostate 778079119 Z12.5 will set up with PSA screening Gout 30804349 M10.041 can use PRN for inflammati on Dupuytren' s contracture of finger 915440385 M72.0 will set up with hand surgeon for a consult, injection Preventive dental procedure 83724904 Z01.20 [place]oxic[place] n 68802 LIYAH RODRIGUEZ [facility] Internal Medicine [address] [facility] [address],[place] [address] 11/16/2022 14:00:44 11/16/2022 15:22:47 Impaired fasting glycemia 539552258 R73.01 A1c is 5.6% last check, doing well Essential hypertension 94090868 I10 BP excellent today Carotid ar eun stenosis 40277407 I65.22 add rosuvastat in, cont. clopidogre l, and ASA Edema of l ower extremity 113379616 R60.0 Kidney is stable Gout 92686313 M10.041 can use PRN for inflammati on Prostate s pecific antigen above reference range 666658525 R97.20 will set up with uro for an eval r/o prostate cancer [id number] LIYAH RODRIGUEZ [facility] Internal Medicine [address] [facility] [address],[place] [address] 12/18/2022 10:34:01 12/21/2022 09:57:48 Hypertriglyceridemia 688944433 E78.2 needs re-up labwork Essential hypertension 50175216 I10 BP excellent today [id number] LIYAH RODRIGUEZ [facility] Internal Medicine [address] [facility] [address],[place] [address] 01/27/2023 14:43:52 01/27/2023 16:08:00 Degenerative joint disease of hand 42282387 M19.041 has f/u with Dr. Bryant already and EMG study which she review prior to his appt wants arthritis treatment center referral just in case in needs to fu with them based on his results for his evaluation Essential hypertension 36308441 I10 BP excellent today needs standing order filledwill get prior to appt. in January LIYAH RODRIGUEZ [facility] Internal Medicine [address] [facility] [address],[place] [address] 02/19/2023 08:49:50 02/19/2023 09:50:47 Anemia 170568943 D50.0 doing well, levels look good Aortic valve stenosis 60 518625 I35.0 stable since TAVR procedure, doing really well Chronic ki dney disease 830117160 I13.0 CMP came back with good results, no abnormalit ies GFR increased from last time which is excellentc reatitine is stable [id number] LIYAH RODRIGUEZ [facility] Internal Medicine [address] [facility] [address],[place] [address] 05/07/2023 09:32:35 05/07/2023 10:11:42 Anemia 618967411 D50.0 doing well, levels look good Chronic ki dney disease 921660465 I13.0 CMP came back with good results, no abnormalit ies GFR increased from last time which is excellentc reatitine is stable Essential hypertension 46719743 I10 BP excellent today needs standing order filledwill get prior to appt. in January Hypertriglyceridemia 302 093460 E78.2 needs re-up labwork Impaired f asting glycemia 519629123 R73.01 A1c is 5.6% last check, doing well Contractur e of joint of hand 14554106 M24.541 will adjust low tramadol dosage from the ORwill adjust dosage per ortho for PCP to take overwill be following up with another surgery Benign pro static hyperplasia 167309535 N40.0 [id number] LIYAH RODRIGUEZ Internal Medicine [address] [facility] [address] [place] [address] 09/08/2023 08:02:50 09/08/2023 16:36:45 Preventive dental procedure 29448057 Z01.20 needs amoxicilli n for his upcoming Chronic ki dney disease 706206865 I13.0 CMP came back with good results, no abnormalit ies GFR increased from last time which is excellentc reatinine is stable Anxiety 96783296 F41.1 will start on 100 mg SR and see how he does on it [id number] LIYAH RODRIGUEZ [facility] Internal Medicine [address] [facility] [address],[place] [address] 10/27/2023 09:44:46 10/29/2023 11:59:42 Respiratory tract congestion and cough 036507077 R05.2 will start back on an inhaler Anxiety 36513215 F41.1 will start on 100 mg SR and see how he does on it Wheezing 93257183 R06.2 will set up with steroids for a week for the wheezing Neuropathy 508204601 G61 .89 will think about seeing a land resource specialist , will let me know [id number] LIYAH RODRIGUEZ [facility] Internal Medicine [address] [facility] [address],[place] [address] 11/26/2023 09:23:29 11/26/2023 11:30:23 Anxiety 17227702 F41.1 increase to 300 mg, says he seems less anxious, he's not so sure but will try Chronic ki dney disease 512124620 I13.0 CMP came back with good results, no abnormalit ies GFR increased from last time which is excellentc reatinine is stable Anemia 873549295 D50.0 doing well, levels look good Hyperlipidemia 73904243 E78.2 6 mos recheck levels [id number] LIYAH RODRIGUEZ [facility] Internal [facility] [address] [facility],[place] [address] 04/14/2024 10:16:59 04/14/2024 11:42:18 Depression screening 609193392 Z13.31 SCREENING NEGATIVE Anemia 709807836 D50.0 doing well, levels look good Chronic ki dney disease 305495883 I13.0 stableno changes At low risk for fall 439 252368 Z91.81 negative [id number] LIYAH RODRIGUEZ [facility] Internal Medicine [address] [facility] [address] [address] 07/21/2024 11:12:57 07/21/2024 12:10:49 Allergic rhinitis 25594399 J30.89 needs refill, will take over prescripti on for the patient Anemia 326337962 D50.0 doing well, levels look good Essential hypertension 76892677 I10 BP excellent today needs standing order filledwill get prior to appt. in January Health Concerns Section Related Observation LastModified by Organization Detai ls LastModified Time None Recorded Concern Status LastModified by Organization Details LastModified Time None Recorded Advance Directives Directive None Recorded Payers Encounter Date Sequence Insurance Name Policy Number Policy Mercado Covered Member ID Mercado Member ID Guarantor Name 09/08/2023 [address] [facility] BLUE (MEDICARE REPLACEMENT PPO) [id number] William Franco [id number] William Franco 10/27/2023 [address] [facility] (MEDICARE REPLACEMENT PPO) [id number] William Franco [id number] William Franco 11/26/2023 [address] [facility] (MEDICARE REPLACEMENT PPO) [id number] Edward Dinosaur [id number] Edward Salvador 04/14/2024 [address] [facility] (MEDICARE REPLACEMENT PPO) [id number] Edward Salvador [id number] Edward Dinosaur 07/21/2024 [address] [facility] (MEDICARE REPLACEMENT PPO) [id number] Edward Dinosaur [id number] Edward Salvador Notes Date Note Type Note Provider Name and Address Organization Details Recorded Time 4 text/html 6 mos f/u The patient is participating in this appointment via telemedicine communication with a phone call/video calling service ([employer])The patient consents to use of these platforms in place of an in-person appointment due to either sick symptoms the patient is presenting with or current office closure due to COVID exposure in order to keep our office staff and patients safe needs his dental procedure preventative abxwill send new script since pharm said old one expiredhaving his teeth cleaned feeling greatno chest pain, no sob, no fever, no chills, no headaches, no dizziness, no vision changesfollows with cardio regularly and he has been feeling good after valve replacement and no other complications after his carotid surgery as well discussed his anxietyrecommended bupropion, low dosewill see how he does on itnoted stress eating and weight gain of 10 pounds LIYAH RODRIGUEZ [address], [place], [address], [facility] Internal Medicine 09/08/2023 16:14:11 4 text/html fu breathing, little bit of chest congestion at this timemost likely a bit of a resp virusgiven inhalertold to use mucinex wheezing in lungsstart pred taper the patient agreed to lab work fu to check his heartrecent echo done through cardio, hasn't got results back yet will increase the bupropionwill f/u after the increase will give regular labs later no other concerns today LIYAH RODRIGUEZ [address], [place], [address], [facility] Internal Medicine 10/27/2023 10:15:04 4 text/html 1 mos f/u anxiety: doing okay on the bupropion, hasn't note a weight losswill try an increased dosage and f/u from there CKD: monitor every 3 mos for the year, make sure his levels are appropriate anemia: will keep an eye on his levels the patient will have standing orders for the year processed will continue to monitor levels LIYAH RODRIGUEZ [address] [place], [address], [facility] Internal Medicine 11/26/2023 09:44:44 4 text/html 3 mos f/u the patient reports he is doing wellreviewed lab work with patient the pt and I discussed his kidneys, no significant change in lab workstill would like he to drink more water, tends to avoid drinking water, drinks sodano change of medication at this time HTN: today in the office the patient BP is 130/74 L arm sitting the patient is doing well on the BP medication with no side effects and no adjustment of their medications needed today at the appointment well-controlled on medication denies chest pain, sob, ankle swelling, orthopnea, palpitations buproprion doesn't seem to be helping with the weightneeds to be more active as well with change in diet the patient is otherwise doing well LIYAH RODRIGUEZ [address] [place], [address], [facility] Internal Medicine 04/14/2024 11:02:55 4 text/html f/u 3 mos the patient levels looks goodhis kidney function is the stablethe patient has a bump in his LFTs, admits to a drink a night which could have caused the elevation since he had a drink prior to his BW BP is stableotherwise doing wellsees cardio routinely without issues after his valve replacement needs use to take over his loratadine scriptnew order submitted LIYAH RODRIGUEZ [address] [place], [address], [facility] Internal Medicine 07/21/2024 12:05:10
[2024-10-23 14:17] LABS: Alanine Aminotransferase 52 U/L (0-40); Albumin Level 4.1 g/dL (3.5-5.0); Alkaline Phosphatase 91 U/L (39-117); Anion Gap 12 (12-20); Aspartate Amino Transferase 45 U/L (5-37); Bilirubin Total 0.6 mg/dL (0.0-1.0); Blood Urea Nitrogen 37 mg/dL (9-16); Calcium 9.8 mg/dL (8.4-10.2); Carbon Dioxide 30 mmol/L (22-29); Chloride 103 mmol/L (96-108); Estimated Glomerular Filt Rate 52; Glucose Random 91 mg/dL (60-115); Potassium 4.3 mmol/L (3.3-5.1); Sodium 141 mmol/L (135-145); Total Protein 7.5 g/dL (6.5-8.0)
== END 2024-10-23 08:24 | disposition home or self-care (01) ==
LOC: HO.MANLDS 08:23
PROVIDERS: Visit Provider Physician Assistant
DX: E78.2 Mixed hyperlipidemia (principal)
CPT/HCPCS: 36415; 80053

== ENCOUNTER 2025-04-03 07:56 | Outpatient (REF) | payer MEDICARE, SELFPAY ==
--- OUTSIDE RECORDS SUMMARY | 2025-04-03 07:59 | XMS_ITS ---
Author Name [facility] Organization Unknown Care Team Organization Name Specialty Phone Email Start Date End Francisco chowdhury [facility] 03/07/2025
--- OUTSIDE RECORDS SUMMARY | 2025-04-03 07:59 | XMS_ITS | Encounter Summary ---
Author Organization [facility] Address [address] [facility] [address] [place] [address] Phone Care Team Providers Care Business Analytics Intern Name Role Phone LorieJoe chavarria Fela HESS Primary Care Provider [phone] Encounter Details Date Type Department Care Team (Late Contact Info) Description 01/18/2018 Ancillary Orders [facility] Orthopedics & Sports Medicine [address] [place] [address] Flakito Cheema MD [address] [place] [address] [email or web address] Social History Tobacco Use Types Packs/Day Years Used Date Smoking Tobacco: Never Smokeless Tobacco: Never Alcohol Use Standard Drinks/Week Comments Yes 0 (1 standard drink = 0.6 oz pure alcohol) every couple days-never more than 2 a day Sex and Gender Information Value Date Recorded Sex Assigned at Not on file Legal Sex Male 10:06 PM EDT Gender Identity Not on file Sexual Orientation Not on file documented as of this encounter Plan of Treatment Upcoming Encounters Date Type Department Care Team (Late st Contact Info) Description 01/16/2025 Procedure Pass [facility] [address] [place] [id number] 07/20/2025 9:15 AM EST Appointment [facility] [address] [place] [address] Hubert Mijares DO [address] [facility] [address] [place] [address] 07/20/2025 10:15 AM EST Appointment [facility] [address] [place] [address] Hubert Mijares, DO [address] [facility] [address] [place] [address] 09/10/2025 10:45 AM EST Office Visit [facility] [address] Floor, [address] [place] [address] Hubert Mijares, DO [address] [facility] [address] [place] [address] 09/13/2025 1:00 PM EST Office Visit [facility] [address] [place] [address] Erich Vega MD [address] [place] [phone] [email or web address] documented as of this encounter Visit Diagnoses Not on filedocumented in this encounter Care Teams Business Analytics Intern Relationship Specialty Start Date End Date Param Joe DO Fela PCP - General Internal Medicine 06/28/17 documented as of this encounter Additional Source Comments The information contained in this document represents components of the legal health record. It is not the complete legal health record.[facility]
--- OUTSIDE RECORDS SUMMARY | 2025-04-03 07:59 | XMS_ITS | Clinical Summary ---
Author Organization [facility] Address [address] [place] [address] Care Team Providers Care Operator Lights Name Role Phone Joe Virgen DO Primary Care Provider [phone] Allergies Active Allergy Reactions Criticality Noted Date [...] 1-dose 75+ series) 2022 Influenza Vaccine (#1) 2025 Hepatitis B Vaccines Aged Out No long er eligible based on patient's age to complete this topic RSV Ped < 20 months Aged Out No longe r eligible based on patient's age to complete this topic Care Teams Operator Lights Relationship Specialty Start Date End Date Joe Virgen DO [address] [place] [address] PCP - General Internal Medicine 12/16/17
[2025-04-03 13:24] LABS: MANUAL DIFF FLAG NO
[2025-04-03 13:42] LABS: Hematocrit 36.7 % (42.0-52.0); Hemoglobin 12.2 g/dl (14.0-18.0); Imm Gran Abs Auto 0.01 X10*3/uL (0.00-0.03); Imm Gran Pct Auto 0.2 % (0.0-0.4); Lymphocytes Absolute Auto 1.2 X10*3/uL (1.2-4.9); Mean Corpuscular HGB Conc 33.2 g/dl (31.0-36.0); Mean Corpuscular Hemoglobin 30.0 pg (27.0-33.0); Mean Corpuscular Volume 90.4 fL (80.0-98.0); NRBC Abs Auto 0.000 X10*3/uL (0.0-0.012); NRBC Pct Auto 0.0 /100WBC (0.0-0.2); Platelet Count 195 X10*3/uL (160-400); Red Blood Count 4.06 X10*6/uL (4.60-5.80); White Blood Count 4.3 X10*3/uL (4.8-10.8)
[2025-04-03 13:53] LABS: Cholesterol 120 mg/dL (<200); HDL Cholesterol 43 mg/dL (>40); Triglycerides 95 mg/dL (<150)
== END 2025-04-03 07:57 | disposition home or self-care (01) ==
LOC: HO.MANLDS 07:56
PROVIDERS: Visit Provider Physician Assistant
DX: D50.0 Iron deficiency anemia secondary to blood loss (chronic) (principal); E78.2 Mixed hyperlipidemia
CPT/HCPCS: 36415; 80061; 85025

== ENCOUNTER 2025-07-31 08:16 | Outpatient (REF) | payer MEDICARE, SELFPAY ==
--- OUTSIDE RECORDS SUMMARY | 2025-07-31 08:19 | XMS_ITS | Encounter Summary ---
Author Organization [facility] Address [address] [facility] [address] [place] [address] Phone Care Team Providers Care Outside Parts Salesman Name Role Phone LorieJoe chavarria Fela HESS Primary Care Provider [phone] Encounter Details Date Type Department Care Team (Late st Contact Info) Description 01/18/2018 Ancillary Orders [facility]ics & Sports Medicine [address] [place] [address] Flakito Cheema MD [address] [place] [address] [email or web address] Social History Tobacco Use Types Packs/Day Years [...] Care Team (Late st Contact Info) Description 09/10/2025 10:45 AM EST Office Visit [facility] [address] [facility] 3rd Floor, [address] [place] [id number] Hubert Mijares DO [address] [facility] [address] [place] [address] 09/13/2025 1:00 PM EST Office Visit [facility] [address] [place] [address] Erich Vega MD [address] [address] [email or web address] documented as of this encounter Visit Diagnoses Not on filedocumented in this encounter Care Teams Outside Parts Salesman Relationship Specialty Start Date End Date Joe Virgen DO [email or web address] PCP - General Internal Medicine 06/28/17 documented as of this encounter Additional Source Comments The information contained in this document represents components of the legal health record. It is not the complete legal health record.[facility]
--- OUTSIDE RECORDS SUMMARY | 2025-07-31 08:19 | XMS_ITS | Encounter Summary ---
Author Organization [facility] Address [address] [facility] [address] [place] [address] Phone Care Team Providers Care Manager Psychology Name Role Phone Lorieaura Joe Chahal DO Primary Care Provider [phone] Encounter Details Date Type Department Care Team (Late Contact Info) Description 01/18/2018 Ancillary Orders [address] [address] Flakito Cheema MD [address] [place] [address] [email or web address] Bilateral hip pain Social History Tobacco Use Types Packs/Day Years [...] Description 09/10/2025 10:45 AM EST Office Visit [facility] [address] [facility] 3rd Floor, [address] [place] [address] [phone] Hubert Mijares DO 22 [facility] [address] [place] [address] 09/13/2025 1:00 PM EST Office Visit [facility] 10 [facility] [place] [address] [place] [address] Erich Vega MD [address] [place] [address] [email or web address] documented as of this encounter Results * XR HIPS 1 VW EA BILAT PLUS PELVIS (01/21/2018 3:28 PM EDT) Narrative Orin Smith - 01/21/2018 3:28 PM EDT This image report has been auto-finalized and has not been read by a Radiologist. Interpretation has been included in the provider encounter note for this date of service. us Flakito Cheema MD IMG XR PELVIS Final Res ult documented in this encounter Visit Diagnoses Diagnosis Bilateral hip pain Pain in joint, pelvic region and thigh Bilateral hip pain Pain in joint, pelvic region and thigh documented in this encounter Care Teams Manager Psychology Relationship Specialty Start Date End Date Joe Virgen DO [email or web address] PCP - General Internal Medicine 06/28/17 documented as of this encounter Additional Source Comments The information contained in this document represents components of the legal health record. It is not the complete legal health record.[facility]
--- OUTSIDE RECORDS SUMMARY | 2025-07-31 08:19 | XMS_ITS | Encounter Summary ---
Author Organization [facility] Address [address] [facility] [address] [place] [address] Phone Care Team Providers Care Gum Rolling Machine Operator Name Role Phone LorieauraJoe DO Primary Care Provider [phone] Encounter Details Date Type Department Care Team (Late Contact Info) Description 12/10/2017 Procedure Pass OR Admitting Dept - Virtual Department 30 [place] [address] Social History Tobacco Use Types Packs/Day Years [...] Encounters Date Type Department Care Team (Late Contact Info) Description 09/10/2025 10:45 AM EST Office Visit [facility] [address] [place] [address] 3rd Floor, [address] [place] [address] Hubert Mijares DO [address] [address] 09/13/2025 1:00 PM EST Office Visit [facility] [address] [place] [address] Erich Vega MD [address] [address] [email or web address] documented as of this encounter Visit Diagnoses Not on filedocumented in this encounter Care Teams Gum Rolling Machine Operator Relationship Specialty Start Date End Date Joe Virgen DO [email or web address] PCP - General Internal Medicine 06/28/17 documented as of this encounter Additional Source Comments The information contained in this document represents components of the legal health record. It is not the complete legal health record.[facility]
--- OUTSIDE RECORDS SUMMARY | 2025-07-31 08:20 | XMS_ITS | Encounter Summary ---
Author Organization [facility] Address [address] [facility] [address] [place] [address] Phone Care Team Providers Care Pediatric Geneticist Name Role Phone LorieJoe chavarria Fela HESS Primary Care Provider [phone] Encounter Details Date Type Department Care Team (Latest Contact Info) Description 09/04/2017 Transcribe Orders [facility] Phleb Main 30 [place], [place] [phone] Bekah Hernandez PA-C [address] Juan. 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); Frequent urination Social History Tobacco Use Types Packs/Day Years Used Date Smoking Tobacco: Never Smokeless Tobacco: Never Alcohol Use Standard Drinks/Week Comments Yes 0 (1 standard drink = 0.6 oz pure alcohol) every couple days-never more than 2 Sex and Gender Information Value Date Recorded Sex Assigned at Not on file Legal Sex Male 10:06 PM EDT Gender Identity Not on file Sexual Orientation Not on file documented as of this encounter Plan of Treatment Upcoming Encounters Date Type Department Care Team (Late st Contact Info) Description 09/10/2025 10:45 AM EST Office Visit [facility] 22 [facility] 3rd Floor, [address] [place], [place] [phone] Hubert Mijares DO 22 [facility] [address] [place] [address] 09/13/2025 1:00 PM EST Office Visit [facility] Pulmonary, Allergy and Critical Care Medicine [address] [place] [address] Erich Vega MD 10 [facility] 2nd [place] [address] [email or web address] documented as of this encounter Results * Urine culture (09/04/2017 8:19 AM EST) Specimen Source/ Description URINE URINE [facility] Special Requests None [facility] GRAM STAIN NO ORGANISMS SEEN [facility] Culture/Test NO GROWTH 48HRS [facility] Report Status 09/06/2017 FINAL [facility] Urine (Urine) 09/04/2017 8:1 9 AM EST 09/04/2017 8:22 AM EST us November [facility] MICROBIOLOGY CULTURE ORD ERABLES Final Result Performing Organization Address City/[facility]/ZIP Co de Phone Number [address] [address] * Urinalysis (09/04/2017 8:19 AM EST) COLOR Yellow Yellow [facility] CLARITY Clear [facility] GLUCOSE Negative Negative [facility] BILI Negative Negative [facility] KETONES Negative Negative [facility] SPECIFIC GRAVITY 1.025 1.005 - 1.030 [facility] BLOOD Negative Negative [facility] PH 5.5 5.0 - 8.0 [facility] Protein-UA Negative Negative [facility] NITRITE Negative Negative [facility] Leukocyte esterase, ur Negative Negative [facility] Urine (Urine) 09/04/2017 8:1 9 AM EST 09/04/2017 8:28 AM EST us November [facility] URINE ORDERABLES Final R esult Performing Organization Address City/[facility]/ZIP Co de Phone Number [address] [address] * (ABNORMAL) Comprehensive metabolic panel (09/04/2017 8:11 AM EST) SODIUM 141 133 - 146 mmol/L [facility] POTASSIUM 4.3 3.3 - 5.1 mmol/L [facility] CHLORIDE 100 96 - 108 mmol/L [facility] CO2 34 21 - 35 mmol/L [facility] BUN 25(H) 6 - 19 mg/dL [facility] CREATININE 1.10 0.5 - 1.5 mg/dL [facility] GLUCOSE 114(H) 70 - 99 mg/dL [facility] ALBUMIN 3.9 3.9 - 4.8 g/dL [facility] TOTAL PROTEIN 7.0 6.5 - 8.0 g/dL [facility] CALCIUM 9.4 8.4 - 10.3 mg/dL [facility] ALKALINE PHOSPHATASE 86 39 - 117 U/L [facility] TOTAL BILIRUBIN 0.3 0 - 1.2 mg/dL [facility] AST 27 0 - 37 U/L [facility] ALT 34 0 - 40 U/L [facility] GLOBULIN 3.1 1 - 4.8 g/dL [facility] EGFR >60 mL/min/1.7 3m2 [facility] Comment:Abnormal if <60. If patient is -Citizen Of [place], multiply the result by 1.21. 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 It is not the complete legal health record.[facility]
--- OUTSIDE RECORDS SUMMARY | 2025-07-31 08:20 | XMS_ITS | Encounter Summary ---
Author Organization [facility] Address [address] [place] [address] [place] [address] Phone Care Team Providers Care Paper Reclaiming Machine Operator Name Role Phone Lorieaura Joe Chahal DO Primary Care Provider [phone] Encounter Details Date Type Department Care Team (Late st Contact Info) Description 06/28/2017 Transcribe Orders [facility] Phlebotomy 30 [place] [address] System, Provider Not In, [facility] [address] [address] Elevated BUN (Primary Dx) Social History Tobacco Use Types Packs/Day Years Used Date Smoking Tobacco: Never Assessed Sex and Gender Information Value Date Recorded Sex Assigned at Not on file Legal Sex Male 10:06 PM EDT Gender Identity Not on file Sexual Orientation Not on file documented as of this encounter Plan of Treatment Upcoming Encounters Date Type Department Care Team (Late st Contact Info) Description 09/10/2025 10:45 AM EST Office Visit [facility] [address] [place] [address] 3rd [facility], [address] [place] [address] Hubert Mijares DO [address] [address] 09/13/2025 1:00 PM EST Office Visit [facility] 10 [place] [address] Erich Vega MD [address] [address] [email or web address] documented as of this encounter Results * (ABNORMAL) Basic metabolic panel (06/28/2017 5:20 PM EDT) SODIUM 140 133 - 146 mmol/L [facility] CHLORIDE 96 96 - 108 mmol/L [facility] POTASSIUM 4.3 3.3 - 5.1 mmol/L [facility] CO2 33 21 - 35 mmol/L [facility] BUN 34(H) 6 - 19 mg/dL [facility] CREATININE 1.10 0.5 - 1.5 mg/dL [facility] GLUCOSE 81 70 - 99 mg/dL [facility] CALCIUM 9.4 8.4 - 10.3 mg/dL [facility] EGFR >60 mL/min/1.7 3m2 [facility] Comment:Abnormal if <60. If patient is -[place], multiply the result by 1.21. ANION GAP 15 10 - 20 mmol/L [facility] Blood 06/28/2017 5:20 PM EDT 06/28/2017 5:22 PM EDT us Provider Not In System PhD LAB BLOOD BKR ORDERAB LES Final Result Performing Organization Address City/State/[facility] Co de Phone Number [address] [address] documented in this encounter Visit Diagnoses Diagnosis Elevated BUN- Primary Other abnormal blood chemistry documented in this encounter Care Teams Paper Reclaiming Machine Operator Relationship Specialty Start Date End Date Joe Virgen DO [email or web address] PCP - General Internal Medicine 06/28/17 documented as of this encounter Additional Source Comments The information contained in this document represents components of the legal health record. It is not the complete legal health record.[facility]
--- OUTSIDE RECORDS SUMMARY | 2025-07-31 08:20 | XMS_ITS | Encounter Summary ---
Author Organization [facility] Address [address] [facility] [address] [place] [address] Phone Care Team Providers Care Development Team Lead Name Role Phone Lorieaura Joe Chahal DO Primary Care Provider [phone] Encounter Details Date Type Department Care Team (Latest Contact Info) Description 05/21/2018 Transcribe Orders [facility] Phleb Main 30 [place] [address] Bridger Skelton MD [address] [place] [address], [address] [place] [address] [email or web address] Numbness (Primary Dx); Neuropathy Social History Tobacco Use Types Packs/Day Years [...] Description 09/10/2025 10:45 AM EST Office Visit [facility] 22 [facility] 3rd Floor, [address] [place] [address] Hubert Mijares DO 22 [facility] [address] [place] [phone] 09/13/2025 1:00 PM EST Office Visit [facility] [address] [place] [address] Erich Vega MD 10 [facility] 2nd [place] [address] [email or web address] documented as of this encounter Results * Vitamin B12 (05/21/2018 8:14 AM EDT) VITAMIN B12 698 232 - 1,245 pg/mL [facility] Blood 05/21/2018 8:14 AM EDT 05/21/2018 10:25 AM EDT us Bridger Skelton MD LAB BLOOD BKR ORDERABLES Fin al Result [facility] 30 [place] [address] * Monoclonal protein study, serum (05/21/2018 8:14 AM EDT) TOTAL PROTEIN 6.8 6.3 - 7.9 g/dL [facility] OF LAB MED AND PAT+ ALBUMIN 3.4 3.4 - 4.7 g/dL [facility] OF LAB MED AND PAT+ ALPHA-1 GLOBULIN 0.2 0.1 - 0.3 g/dL [facility] D[facility] OF LAB MED AND PAT+ ALPHA-2 GLOBULIN 0.9 0.6 - 1.0 g/dL [facility] DPT OF LAB MED AND PAT+ BETA-GLOBULIN 0.9 0.7 - 1.2 g/dL [facility] DPT OF LAB MED AND PAT+ GAMMA-GLOBULIN 1.3 0.6 - 1.6 g/dL [facility] DPT OF LAB MED AND PAT+ A/G RATIO 1.01 [facility]+ M SPIKE Test component not applicable or not reported. not reported [facility] DPT OF LAB MED AND PAT+ M SPIKE Test component not applicable or not reported. not reported [facility] DPT OF LAB MED AND PAT+ IMPRESSION SEE NOTE [facility] MED AND PAT+ Comment: (NOTE) No apparent monoclonal protein on serum electrophoresis. See Immunofixation. IMMUNOFIXATION No monoclonal protein detected. [facility] DPT OF LAB MED AND PAT+ Blood 05/21/2018 8:14 AM EDT 05/22/2018 11:16 AM EDT us Bridger Skelton MD LAB BLOOD BKR ORDERABLES Fin al Result Performing Organization Address City/[facility]/ZIP Co de Phone Number [facility] DPT OF LAB MED AND PAT+ [address] [place] [address] * TSH (05/21/2018 8:14 AM EDT) TSH 1.57 0.27 - 4.20 uIU/mL [facility] Blood 05/21/2018 8:14 AM EDT 05/21/2018 10:25 AM EDT us Bridger Skelton MD LAB BLOOD BKR ORDERABLES Fin al Result Performing Organization Address [facility] Co de Phone Number [address] [address] * Antinuclear antibody (SINTIA) (05/21/2018 8:14 AM EDT) SINTIA SCREEN ON HEP 2 Negative Negative [facility] Blood 05/21/2018 8:14 AM EDT 05/21/2018 10:25 AM EDT us Bridger Skelton MD LAB BLOOD BKR ORDERABLES Fin al Result Performing Organization Address [facility] Co de Phone Number [address] [address] documented in this encounter Visit Diagnoses Diagnosis Numbness- Primary Disturbance of skin sensation Neuropathy Mononeuritis of unspecified site documented in this encounter Care Teams Development Team Lead Relationship Specialty Start Date End Date Joe Virgen DO PCP - General Internal Medicine 06/28/17 documented as of this encounter Additional Source Comments The information contained in this document represents components of the legal health record. It is not the complete legal health record.[facility]
--- OUTSIDE RECORDS SUMMARY | 2025-07-31 08:20 | XMS_ITS | Clinical Summary ---
Author Organization [facility] Address [address] [facility] [address] [place] [phone] Phone Care Team Providers Care Commissions Coordinator Name Role Phone LorieauraJoe DO Primary Care Provider [phone] Allergies Active Allergy Reactions Criticality Noted Date Comments Codeine Nausea and/or Vomiting 08/02/2017 Lisinopril 12/01/2022 Cough Oxycodone Nausea and/or Vomiting 12/01/2017 Oxycodone-Acetaminophen Hallucinations High 01/08/20 22 Medications fluticasone propionate (FLONASE) 50 mcg/actuation nasal spray 1 spray by Nasal route daily. Active loratadine (CLARITIN) 10 mg tablet Take 10 mg by mouth daily. 2 Active rosuvastatin (CRESTOR) 20 MG tablet rosuvastatin 20 mg tablet TAKE 1 TABLET BY MOUTH EVERY DAY Active docosahexaenoic acid-epa 120-180 mg Cap Active colchicine (COLCRYS) 0.6 mg tablet colchicine 0.6 mg tablet TAKE 1 TABLET BY MOUTH EVERY DAY NEEDED Active aspirin 81 mg chewable tablet Take 81 mg by mouth. 2 Active traMADoL (ULTRAM) 50 mg tablet Take 1 tablets by mouth every 6-8 hours as needed for pain, maximum 400 mg/day. Patient may request partial fill. 5 tablet 3 Active albuterol 90 mcg/actuation inhaler Inhale 2 puffs into the lungs every 4 (four) hours as needed. 4 Active amoxicillin (AMOXIL) 500 MG tablet TAKE 1 TABLET BY MOUTH EVERY 8 HOURS FOR 4 DAYS Active omega 3-ocd-lma-fish oil 300 mg (120 mg- 180mg)-1,000 mg Cap Take 1 capsule by mouth every morning. 4 Active turmeric-turmeri c root extract 450-50 mg capsule Take 2 capsules by mouth every morning. 4 Active hydrALAZINE (APRESOLINE) 50 MG tabletIndication s:Benign essential hypertension TAKE 1 TABLET(50 MG) BY MOUTH THREE TIMES DAILY 270 tablet 3 5 Active torsemide (DEMADEX) 20 MG tablet Taking 40mg Active losartan (COZAAR) 50 MG tablet Take 1 tablet (50 mg total) by mouth daily. 90 tablet 3 5 Active buPROPion (WELLBUTRIN XL) 300 MG ER 24 hr tablet Take 300 mg by mouth daily. Active Active Problems Problem Noted Date Diagnosed Date Left carpal tunnel syndrome 11/29/2024 Asymptomatic stenosis of left carotid artery 10/2021 Assessment & Plan (01/16/2025 8:56 AM EDT): His left carotid artery has been stented and is widely patent I follow this twice a year with ultrasound Assessment & Plan (01/03/2024 12:39 PM EDT): Also nonsevere and asymptomatic we will check this with duplex ultrasound once a year Assessment & Plan (01/18/2023 3:00 PM EDT): Now s/p left carotid stenting. He had a carotid duplex done at our [place] office about one week following the procedure- this has not been formally read yet, will await results. He will continue Plavix for three months post-procedure (until 04/07/23), continue aspirin thereafter. Assessment & Plan (12/01/2022 8:22 AM EDT): This patient has around an 80% left carotid stenosis which has gotten worse over prior carotid duplex. I have explained the risk benefits and alternatives to him regarding a carotid angiogram which I will perform at [facility]. Assessment & Plan (01/07/2022 1:32 PM EDT): Reviewed carotid duplex as above. He is asymptomatic. We will continue to monitor this with repeat scans every 6 months. Assessment & Plan (10/30/2021 11:57 AM EST): Reviewed carotid duplex as above. He is asymptomatic. We will continue to monitor this with repeat scans every 6 months. Incidental finding of thyroid mass- defer to PCP for further work up and management. Patient is aware. Angina pectoris 08/11/2021 Assessment & Plan (12/01/2022 8:22 AM EDT): No chest pain whatsoever Assessment & Plan (08/11/2021 10:11 AM EST): As mentioned we are going to proceed with cardiac catheterization which will be done at [facility] I explained risk benefits and alternatives to him regarding this. Localized edema 08/11/2021 Assessment & Plan (09/19/2021 4:02 PM EST): Patient reports that this is a long-standing issue that has stopped responding effectively to 20 mg daily Lasix. Will increase to 40 mg daily, recheck BMP in one week. He does have a venous duplex study scheduled on 10/22/21. Aortic valve disorder 08/11/2021 Assessment & Plan (01/16/2025 8:56 AM EDT): Status post percutaneous aortic valve replacement with normal gradients for this type of valve we will check it again in 6 months time Assessment & Plan (01/03/2024 12:39 PM EDT): 1. Aortic valve disease. This patient has a percutaneous aortic valve replacement which is functioning well we will check it once a year. Assessment & Plan (01/18/2023 2:58 PM EDT): Symptomatically doing quite well following TAVR in June of 2022. He will remain on 81 mg aspirin indefinitely. Plan for surveillance echocardiogram in the fall. Assessment & Plan (12/01/2022 8:22 AM EDT): Well treated with a percutaneous aortic valve replacement Assessment & Plan (04/30/2022 8:37 AM EDT): Being followed by Dr Mann for likely TAVR. Assessment & Plan (01/07/2022 1:31 PM EDT): Being followed by Dr Enrique. He has an appointment in late December for PFTs and follow up with Dr Enrique thereafter regarding next steps. Assessment & Plan (10/30/2021 11:44 AM EST): Recent echo showing probably trileaflet aortic valve with moderate to severe aortic stenosis (maximum velocity across the aortic valve is 3.89 m/sec). Patient is motivated to move forward with next steps regarding his valve. I will reach out to Dillan Abel and Dr Enrique to determine ABDELRAHMAN vs TAVR CT to assess for bicuspid vs tricuspid valve as next step going forward. Assessment & Plan (09/19/2021 3:57 PM EST): We will repeat a TTE per Dr Mijares's post cath recommendations to further assess severity of . Assessment & Plan (08/11/2021 10:12 AM EST): He has moderate aortic stenosis which is not really severe enough to cause patient's symptoms but he sounds like he has angina more than shortness of breath. Varicose veins of bilateral lower extremities with other complications 08/11/2021 Assessment & Plan (01/03/2024 12:39 PM EDT): Present but asymptomatic Assessment & Plan (04/30/2022 8:39 AM EDT): We reviewed his LEV. He would like to move forward with a right SSV ablation in hopes of clearing up his lower extremity edema. We will schedule this, as well as a one week post-procedural LEV and see him in follow up thereafter. I've encouraged him to continue to work towards losing more weight. Assessment & Plan (01/07/2022 1:33 PM EDT): Doing well s/p right GSV ablation on 12/24, still with some residual edema. Will repeat right LEV in late February/early March, if SSV does not improve we will discuss SSV ablation. He prefers to defer L GSV ablation for now, until we have a better idea of what the next steps regarding his aortic valve will be. Assessment & Plan (10/30/2021 11:47 AM EST): He has had bothersome lower extremity edema for years. Has tried compression stockings, walking and leg elevation without much success. We reviewed his venous duplex study as above. He would like to start with a right GSV ablation as this is the leg that bothers him the most. I have also given him a prescription for compression stockings to see if he can talk to someone at the store to find a better fitting pair. Finally, I discussed weight loss with him at length today (which would be helpful in regard to more than one of his chronic conditions), to which he responded I could tell a doctor that I have an ingrown toenail and they would blame it on my weight . Assessment & Plan (08/11/2021 10:12 AM EST): Severe lower extremity venous reflux study was ordered I am sure he is going to have something significant Benign essential hypertension 08/11/2021 Assessment & Plan (01/16/2025 8:56 AM EDT): Well-controlled to the guideline Assessment & Plan (01/18/2023 2:58 PM EDT): BP in office today 128/72. Continue losartan and hydralazine. Assessment & Plan (04/30/2022 8:38 AM EDT): Continue diltiazem, lisinopril, and hydralazine at current doses. Assessment & Plan (01/07/2022 1:31 PM EDT): BP much better in office today after increasing hydralazine to 50 mg TID at last appointment. Will continue diltiazem, lisinopril, and hydralazine at current doses. Assessment & Plan (10/30/2021 11:45 AM EST): His blood pressure is persistently elevated, tells me it has been like this for years. Both patient and are insistent that he eats very little to no dietary sodium. We will increase hydralazine to 50 mg TID. Assessment & Plan (09/19/2021 4:01 PM EST): His BP is elevated in office today. We spent a significant amount of time today talking about his edema and aortic stenosis. When I follow up with him after repeating BMP in one week, will discuss increasing hydralazine dose. He tells me that he follows a very low sodium diet. Assessment & Plan (08/11/2021 10:12 AM EST): Not yet well controlled. We will reevaluate next visit Right carpal tunnel syndrome Encounters Date Type Department Care Team Description 07/20/2025 8:42 AM EST - 07/20/2025 11:59 PM EST Hospital Encounter [facility] [place] [address] Hubert Mijares, DO Discharge Disposition: Home or Self Care 07/20/2025 8:41 AM EST Hospital Encounter [facility] [place] [address] Hubert Mijares, DO Discharge Disposition: Home or Self Care 01/16/2025 Procedure Pass [facility] [address] [place] [address] from Last 3 Months Immunizations Immunization Administration Dates Next Due COVID-19 (Pre-06/21) Pfizer Vaccine, mRNA, PF 06/26/2021 Influenza A Monovalent (H5n1 ), Adjuvanted-201206/25/2009 Influenza High-Dose Quadriva lent Preservative Free IM 05/08/2021,04/24/2020 Influenza High-Dose Trivalen t Preservative Free IM 05/10/2015 Influenza Trivalent Adjuvant ed Preservative free IM 05/14/2018,06/05/2017,04/27/2016 Pneumococcal conjugate PCV13 05/14/2018 Zoster recombinant 01/01/2019,07/22/2018 Social History Tobacco Use Types Packs/Day Years Used Date Smoking Tobacco: Never Smokeless Tobacco: Never Tobacco Cessation:Counseling Given: Not Answered Alcohol Use Standard Drinks/Week Comments Yes 1 (1 standard drink = 0.6 oz pur e alcohol) Education Answer Date Recorded Are you interested in more education? Not on oneida e 12/25/2022 Are you concerned about learning? Not on file 12/25/2022 No 12/25/2022 No 12/25/2022 Digital Access Answer Date Recorded No 01/20/2023 No 01/20/2023 Reliable internet access at home? Not on file 01/20/2023 Device with a working camera? Not on file Intimate Partner Violence Answer Date R ecorded Are you denied basic needs s uch as food, clothing, or medical care? No 12/22/2022 In the past 12 months have y ou been in a relationship with a person who hurts, threatens, or tries to control you? No 12/22/2022 Are you denied basic needs s uch as food, clothing, or medical care? No 12/22/2022 In the past 12 months have y ou been in a relationship with a person who hurts, threatens, or tries to control you? No 12/22/2022 Sex and Gender Information Value Date Recorded Sex Assigned at Not on file Legal Sex Male 10:06 PM EDT Gender Identity Not on file Sexual Orientation Not on file Last Filed Vital Signs Vital Sign Reading Time Taken Comments Blood Pressure 120/72 01/16/2025 8:45 AM EDT Pulse 69 11/29/2024 9:30 AM EDT Temperature 36.1 C (97 F) 11/29/2024 9:30 AM EDT Respiratory Rate 16 11/29/2024 9:30 AM EDT Oxygen Saturation 95% 11/29/2024 9:30 AM EDT Inhaled Oxygen Concentration - - Weight 105.7 kg (233 lb) 01/16/2025 8:45 AM EDT Height 167.6 cm (5' 6 ) 01/16/2025 8:45 AM EDT Body Mass Index 37.61 01/16/2025 8:45 AM EDT Plan of Treatment Upcoming Encounters Date Type Department Care Team (Late st Contact Info) Description 09/10/2025 10:45 AM EST Office Visit [facility] [address] [facility] 3rd Floor, [address] [place] [address] Hubert Mijares DO [address] [facility] [address] [place] [id number] 09/13/2025 1:00 PM EST Office Visit [facility] [address] [place] [address] Erich Vega MD [address] [address] [email or web address] Health Maintenance Due Date Last Done Comments Adult Td,Tdap Booster 1947 DEPRESSION SCREENING 1959 HEPATITIS C SCREENING 1965 COLOGUARD 1992 FIT TEST 1992 FOBT 1992 SIGMOIDOSCOPY 1992 VIRTUAL COLONOSCOPY 1992 PNEUMOCOCCAL VACCINES (50+ years) (2 of 2 - PCV20 or PCV21) 05/14/2019 05/14/2018 RSV VACCINE (1 - 1-dose 75+ series) 2022 INFLUENZA VACCINE (#1) 2025 , 05/24/2023, 04/29/2022, Additional history exists COVID-19 VACCINE ( season) 2025 05/25/2024, 05/31/2023, 06/11/2022, Additional history exists BLOOD PRESSURE 07/19/2025 01/16/2025 CREATININE LEVEL 01/26/2026 01/26/2025, , 02/12/2022, Additional history exists POTASSIUM LEVEL 01/26/2026 01/26/2025, 11/28, 02/12/2022, Additional history exists COLONOSCOPY 07/17/2026 07/17/2016 COLORECTAL CANCER SCREENING 07/17/2026 ZOSTER VACCINES Completed 01/01/2019, 07/01, 10/21/2009 SMOKING STATUS SCREENING (Once After 26 Yrs) Completed 01/16/2025 HEPATITIS A VACCINES Aged Out No long er eligible based on patient's age to complete this topic HIB VACCINES Aged Out No longer eligi ble based on patient's age to complete this topic MENINGOCOCCAL VACCINES (ACWY) Aged Out No longer eligible based on patient's age to complete this topic MENINGOCOCCAL VACCINES (B) Aged Out N o longer eligible based on patient's age to complete this topic Medical Devices Implanted Type Area Advanced Manufacturing Engineer Device Identifier Shelf Expiration Date Model / Serial / Lot Prosthetic Valve-07/24/20 Implanted:07/01 (Quantity not on file) Prosthetic Valve Aorta Description:Bovine aortic va lve at [facility] Stent Stent Left: Carotid Right Knee Left Knee Procedures Procedure Name Priority Date/Time Associated Diagnosis Comments US CAROTID DUPLEX COMPLETE (BILATERAL) Routine 07/20/2025 10:42 AM EST Cardiac murmur, unspecified TTE COMPREHENSIVE Routine 07/20/2025 10: 06 AM EST Cardiac murmur, unspecified COMPREHENSIVE METABOLIC PANEL (CMP) Routine 01/26/2025 8:09 AM EDT Pure hypercholesterolemia Mixed hyperlipidemia HM COLONOSCOPY FOR RESULT ENTRY ONLY Routine 07/17/2016 from Last 3 Months or Most Recently Relevant to Health Maintenance Results * US Carotid Duplex Complete (Bilateral) (07/20/2025 10:42 AM EST) Height 168 cm Weight 106 kg Prox CCA 134 cm/sec Mid CCA 88 cm/sec Dist CCA 83 cm/sec Prox ICA 91 cm/sec Prox ICA 31 cm/sec Mid ICA 80 cm/sec Mid ICA 27 cm/sec Dist ICA 67 cm/sec Dist ICA 27 cm/sec ECA 106 cm/sec Vertebral 50 cm/sec Prox Subclavian 115 cm/sec Anatomical Region Laterality Modality Heart, Thoracic Vasculature, Neck Ultrasound Narrative 07/23/2025 10:07 AM EST Impression: Right Side: Internal carotid artery stenosis range: 16-49% Vertebral artery is antegrade Subclavian artery is multiphasic. Left Side: CCA- ICA carotid artery stent appears patent. Vertebral artery is antegrade Subclavian artery is multiphasic. Thyroid nodule remains stable. Since prior exam on 12/22/24. No change. Carotid Artery Right COMMON CAROTID ARTERY Proximal: plaque Proximal: calcified INTERNAL CAROTID ARTERY Proximal: plaque Proximal: calcified VERTEBRAL antegrade SUBCLAVIAN ARTERY Proximal: triphasic Introductory Comments Techniques used for this study included: color flow Doppler and spectral waveform Doppler. us Hubert Fela Arcoleo DO CV US NEUROVASCULAR Final Res ult * TTE COMPREHENSIVE (07/20/2025 10:06 AM EST) Height 168 cm Weight 110 kg Systolic BP 148 mmHg Diastolic BP 72 mmHg Interventricular Septum Thickness 14 6 - 11 mm Left Ventricle Internal Diameter End Diastole 43 42 - 58 mm Left Ventricle Internal Diameter End Systole 34 <40 mm Left Ventricular Outflow Tract Diameter 20.0 mm Left Ventricular Posterior Wall Thickness 13 6 - 11 mm Left Ventricle Ea Lateral Wave Speed 7.1 cm/s Left Ventricle Ea Septal Wave Speed 7.0 cm/s Ejection Fraction 60 50 - 75 Percent Left Atrium Dimension Anterior-Posterior 44 15 - 40 mm Aortic Valve Mean Gradient 8 mmHg Aortic Valve Mean Gradient 8 mmHg Aortic Valve Time Velocity Integral 496.0 mm Aortic Valve Peak Velocity 2.0 m/s Aortic Valve Peak Gradient 17 mmHg Aortic Arch Diameter 25 mm Aortic Sinus Diameter 30 <40 mm Ascending Aorta Diameter 33 <36 mm Inferior Vena Cava Diameter 15 <21 mm Mitral Valve Deceleration Time 198 ms Left Ventricle A Wave Speed 99.8 cm/s Left Ventricle E Wave Speed 85.3 cm/s Mitral Valve Mean Gradient 3 mmHg Mitral Valve Peak Gradient 6 mmHg Mitral Valve Area Continuity Equation 2.20 cm2 Pulmonary Valve Peak Velocity 0.9 m/s Pulmonary Valve Peak Gradient 3 mmHg Right Ventricle Basal Diameter 37 25 - 41 mm Raw LV EF% 37 % MV E/E' Tissue Velocity Lateral 12.01 Relative Wall Thickness 0.60 0.22 - 0.42 MV E/A ratio 0.9 MV E/e' septal 12.19 Left Ventricle E/e' Average 12.1 Aortic Valve Prosthetic Peak Gradient 17 mmHg Aorta Sinus Index by Height 1.79 cm/m Aorta Sinus CSA index by Height 4.21 cm2/m Asc Aorta CSA Index by Height 5.09 cm2/m Mitral Valve Prosthetic Peak Gradient 6 mmHg Mitral Valve Prosthetic Mean Gradient 3 mmHg Pulmonic Valve Prosthetic Peak Gradient 3 mmHg Echo E/Ea 12.19 Body Surface Area 2.17 m2 Left Ventricle indexed to BSA 101.3 g/m2 Right Atrium Area 14 cm2 Right Atrium Area index 6 cm2/m2 LVOT VTI REST 25.0 cm Aortic Valve Sinus Index by BSA 14 mm/m2 Ascending Aorta Index 15 mm/m2 Ascending Aorta Index 15 mm Aortic Sinus Index 14 mm Ascending Aorta Diameter 15 mm Aortic Valve Sinus Index 1 14 20 - 32 mm AO ASC DIAM BSA INDEX 15.21 Anatomical Region Laterality Modality Heart Ultrasound Narrative 07/23/2025 10:35 AM EST Images from the original result were not included. 1. The indication is murmur the left ventricular ejection fraction is 60%. Diastolic function is normal left ventricular thickness is mildly increased and regional wall motion is normal. 2. Normal RV size and function. 3. There is a percutaneous aortic valve replacement in place with a peak velocity of 2 m/s. The peak gradient is 17 mmHg with a mean of 8. There is trivial regurgitation and the ascending aortic root is normal size. 4. Trace mitral and trace tricuspid sufficiency, the PA pressure cannot be calculated. 5. Normal pericardium and when compared to the prior echo done in October 2024, there is no significant change. Left Ventricle The left ventricle is normal in size. There is LV hypertrophy with upper septal predominance. There is mild concentric hypertrophy. The interventricular septal thickness is 14 mm. The LV posterior wall thickness is 13 mm. There is normal left ventricular systolic function. The LV ejection fraction is 60% (calculated via biplane measurement). LV diastolic function appears within normal limits for age. The E wave velocity is 85.3 cm/s. The A wave velocity is 99.8 cm/s. The E/A ratio is 0.9. The e' septal wave velocity is 7.0 cm/s. The e' lateral wave velocity is 7.1 cm/s. The average E/e' ratio is 12.1. Right Ventricle The right ventricle is normal in size. There is normal right ventricular systolic function. Left Atrium The left atrium is mildly dilated. The left atrial anterior-posterior dimension is 44 mm. Right Atrium The right atrium is normal in size. The right atrial area is 14 cm2. The IVC is normal in size. The IVC diameter is 15 mm (normal: <= 21 mm). Mitral Valve There is mitral valve thickening. There is no mitral stenosis. There is trace mitral regurgitation. Tricuspid Valve The tricuspid valve appears normal. There is no tricuspid stenosis. There is trace tricuspid regurgitation. RV systolic pressure could not be estimated due to insufficient TR Doppler envelope. Aortic Valve The aortic valve is suboptimally visualized. There is a 3mm Jill Ultra #26 stent mounted bioprosthesis (TAVR) (per prior echocardiogram report on 11/08/2024). There is no aortic stenosis. The aortic valve peak velocity is 2.0 m/s. The peak and mean aortic valve prosthetic gradients are 17 mmHg and respectively. The left ventricular outflow tract velocity time integral is 25.0 cm. There is trace aortic regurgitation. The visualized portions of the thoracic aorta appear normal in size. Pulmonic Valve The pulmonic valve appears normal. There is no pulmonic stenosis. There is trace pulmonic regurgitation. Pericardium The pericardium appears normal. There is no pericardial effusion. General Findings The image quality was adequate. Technique(s) used in the evaluation: Multiplane, Color flow Doppler and Spectral Doppler. The predominant rhythm during the study was sinus. Comparison Findings Compared to prior TTE on 11/08/2024, IAS/IVS The interatrial septum appears normal. There is no evidence of patent foramen ovale (PFO). us Hubert Mijares DO CV ECHO ORDERABLES Final Resu lt * (ABNORMAL) Comprehensive metabolic panel (01/26/2025 8:09 AM EDT) SODIUM 141 133 - 146 mmol/L [facility] POTASSIUM 4.8 3.3 - 5.1 mmol/L [facility] CHLORIDE 102 96 - 108 mmol/L [facility] CO2 31 21 - 35 mmol/L [facility] BUN 39(H) 6 - 19 mg/dL [facility] CREATININE 1.40 0.5 - 1.5 mg/dL [facility] GLUCOSE 97 70 - 99 mg/dL [facility] ALBUMIN 4.3 3.9 - 4.8 g/dL [facility] TOTAL PROTEIN 7.2 6.5 - 8.0 g/dL [facility] CALCIUM 10.0 8.4 - 10.3 mg/dL [facility] ALKALINE PHOSPHATASE 103 39 - 117 U/L [facility] TOTAL BILIRUBIN 0.4 0.0 - 1.2 mg/dL [facility] AST 34 0 - 37 U/L [facility] ALT 32 0 - 40 U/L [facility] GLOBULIN 2.9 1 - 4.8 g/dL [facility] EGFR 52(L) >59 mL/min/1.7 3m2 [facility] Comment:Estimated glomerular filtration rate calculated using the CKD-EPI refit equation. ANION GAP 13 10 - 20 mmol/L [facility] Blood 01/26/2025 8:09 AM EDT 01/26/2025 11:02 AM EDT Lyndsay [facility] BLOOD BKR ORDERABLES Fi nal Result Performing Organization Address City/State/[facility] Co de Phone Number [address] [phone] * COLONOSCOPY FOR RESULT ENTRY ONLY (07/17/2016) Colonoscopy External Historical Provider HEALTH MAINTENANCE Final Result from Last 3 Months or Most Recently Relevant to Health Maintenance Insurance [place] P[place] BLUE REPLACEMENT MEDICARE PPO BLUE REPLACEMENT MEDICARE PPO BLUE REPLACEMENT MEDICARE PPO BLUE REPLACEMENT MEDICARE PPO BLUE REPLACEMENT MEDICARE PPO BLUE REPLAC[place] BLUE REPLACEMENT Advance Directives For more information, please contact: [phone] (9AM - 5PM [facility], Wednesday-Wednesday) Documents on File Type Date Recorded Patient Health Record Technician Expl anation Healthcare Proxy 12/01/2024 3:50 PM * Full Code (Latest Code Status on File) Date Activated Date Inactivated Comments 12/22/2022 6:58 AM Question Answer Comments Code Status Confirmed With: Patient Code Status Communicated To: Other (specify belo w) Code Discussion Comments: Per MD Mijares * Full Code Date Activated Date Inactivated Comments 09/01/2021 8:43 AM 12/22/2022 6:58 AM Question Answer Comments Code Status Confirmed With: Patient Care Teams Commissions Coordinator Relationship Specialty Start Date End Date Joe Virgen DO PCP - General Internal Medicine 06/28/17 Additional Source Comments The information contained in this document represents components of the legal health record. It is not the complete legal health record.[facility]
--- OUTSIDE RECORDS SUMMARY | 2025-07-31 08:20 | XMS_ITS | Encounter Summary ---
Author Organization [facility] Address [address] [facility] [address] [place] [address] Phone Care Team Providers Care Catalog Specialist Name Role Phone Joe Virgen DO Primary Care Provider [phone] Encounter Details Date Type Department Care Team (Latest Contact Info) Description 04/23/2021 Transcribe Orders Virtual Department 30 [place] [address] Lyndsay Wilcox PA 6 [facility] [address] Ventral hernia without obstruction or gangrene (Primary Dx) Social History Tobacco Use Types [...] Description 09/10/2025 10:45 AM EST Office Visit [facility] 22 [facility] 3rd Floor, [address] [place] [address] Hubert Mijares DO [address] [address] 09/13/2025 1:00 PM EST Office Visit [facility] All[facility] 10 [facility] [place] [address] Erich Vega MD 10 [facility] 2nd [place] [address] [email or web address] documented as of this encounter Visit Diagnoses Diagnosis Ventral hernia without obstruction or gangrene- Primary Unspecified ventral hernia without mention of obstruction or gangrene documented in this encounter Care Teams Catalog Specialist Relationship Specialty Start Date End Date Joe Virgen DO [email or web address] PCP - General Internal Medicine 06/28/17 documented as of this encounter Additional Source Comments The information contained in this document represents components of the legal health record. It is not the complete legal health record.[facility]
--- OUTSIDE RECORDS SUMMARY | 2025-07-31 08:20 | XMS_ITS | Encounter Summary ---
Author Organization [facility] Address [address] [facility] [address] [place] [address] Phone Care Team Providers Care Hose Seamer Name Role Phone LorieJoe chavarria Fela HESS Primary Care Provider [phone] Encounter Details Date Type Department Care Team (Late st Contact Info) Description 02/23/2023 Prep for Surgery [facility] Orthopedics & Sports Medicine [address] [place] [address] Ramonita Bryant MD [address] [place] [address] Orthopedics & Sports Medicine, [facility] [place], [place] [id number] [email or web address] Social History Tobacco Use Types Packs/Day Years Used Date Smoking Tobacco: Never Smokeless Tobacco: Never Alcohol Use Standard Drinks/Week Comments Yes 14 (1 standard drink = 0.6 oz pu re alcohol) Occasonal Education Answer Date Recorded Are you interested [...] Description 09/10/2025 10:45 AM EST Office Visit [facility] 22 [facility] 3rd [facility], [address] [place] [address] Hubert Mijares DO [address] [address] 09/13/2025 1:00 PM EST Office Visit [facility] 10 [place] [address] Erich Vega MD [address] [address] [email or web address] documented as of this encounter Visit Diagnoses Not on filedocumented in this encounter Care Teams Hose Seamer Relationship Specialty Start Date End Date Joe Virgen DO PCP - General Internal Medicine 06/28/17 documented as of this encounter Additional Source Comments The information contained in this document represents components of the legal health record. It is not the complete legal health record.[facility]
--- OUTSIDE RECORDS SUMMARY | 2025-07-31 08:20 | XMS_ITS | Encounter Summary ---
Author Organization [facility] Address 399 [facility] [address] [place] [address] Phone Care Team Providers Care Sales Agent Financial Report Service Name Role Phone LorieauraJoe DO Primary Care Provider [phone] Encounter Details Date Type Department Care Team (Latest Contact Info) Description 04/23/2021 Transcribe Orders Virtual Department 30 [place] [address] Lyndsay Wilcox PA [address] [place] [address] [place] [address] Low back pain, unspecified back pain laterality, unspecified chronicity, unspecified whether sciatica present (Primary Dx) Social History Tobacco Use Types [...] Description 09/10/2025 10:45 AM EST Office Visit [facility] 22 [facility] 3rd Floor, [address] [place] [address] Hubert Mijares DO [address] [address] 09/13/2025 1:00 PM EST Office Visit [facility] Pulmonary, Allergy and Critical Care Medicine 10 [facility] [place] [address] Erich Vega MD [address] [place] [address] [email or web address] documented as of this encounter Results * XR LUMBOSACRAL SPINE 4 OR MORE VIEWS (05/20/2021 7:44 AM EDT) Anatomical Region Laterality Modality L-spine Computed Radiogr aphy 05/20/2021 9:14 AM EDT Impressions 05/20/2021 9:36 AM EDT Extensive diffuse degenerative disc disease, endplate spondylosis and lower level facet arthropathy. No acute bony changes. POS [id number] Narrative 05/20/2021 9:36 AM EDT 5 views. No comparison Well aligned vertebral bodies. Severe narrowing of the L4-5 and L5-S1 discs and mild to moderate narrowing of all the other discs. Moderately prominent anterior osteophytes at all levels below L2. There is a large limbus vertebral body anterior to the L3-4 disc and a bridging osteophyte anteriorly at L2-3. Prominent facet arthropathy at L4-5 and L5-S1. No compression fracture, spondylolysis or other bony injury. No evidence of metastatic disease. Procedure Note Dionisio Lora MD - 05/20/2021 5 views. No comparison Well aligned vertebral bodies. Severe narrowing of the L4-5 and L5-S1 discs and mild to moderatenarrowing of all the other discs. Moderately prominent anterior osteophytes at all levels below L2. There is a large limbus vertebral body anterior to the L3-4 disc and abridging osteophyte anteriorly at L2-3. Prominent facet arthropathy at L4-5 and L5-S1. No compression fracture, spondylolysis or other bony injury. No evidence of metastatic disease. IMPRESSION: Extensive diffuse degenerative disc disease, endplate spondylosis andlower level facet arthropathy. No acute bony changes. POS [id number] Lyndsay PELLETIER IMG XR SPINE Final Resul t documented in this encounter Visit Diagnoses Diagnosis Low back pain, unspecified back pain laterality, unspecified chronicity, unspecified whether sciatica present- Primary Low back pain, unspecified back pain laterality, unspecified chronicity, unspecified whether sciatica present documented in this encounter Care Teams Sales Agent Financial Report Service Relationship Specialty Start Date End Date Joe Virgen DO [email or web address] PCP - General Internal Medicine 06/28/17 documented as of this encounter Additional Source Comments The information contained in this document represents components of the legal health record. It is not the complete legal health record.[facility]
--- OUTSIDE RECORDS SUMMARY | 2025-07-31 08:20 | XMS_ITS | Encounter Summary ---
Author Organization [facility] Address 399 [facility] [address] [place] [address] Phone Care Team Providers Care Electronics Instructor Name Role Phone Joe Virgen DO Primary Care Provider [phone] Encounter Details Date Type Department Care Team (Late st Contact Info) Description 01/16/2025 Procedure Pass [facility] [place] [address] [place] [address] Social History Tobacco Use Types Packs/Day Years Used Date Smoking Tobacco: Never Smokeless Tobacco: Never Alcohol Use Standard Drinks/Week Comments Yes 1 [...] Description 09/10/2025 10:45 AM EST Office Visit [facility] 22 [facility] 3rd Floor, [address] [place] [address] Hubert Mijares DO 22 [facility] [address] [place] [address] 09/13/2025 1:00 PM EST Office Visit [facility] 10 [place] [address] Erich Vega MD [address] [place] [address] [email or web address] documented as of this encounter Visit Diagnoses Not on filedocumented in this encounter Care Teams Electronics Instructor Relationship Specialty Start Date End Date Joe Virgen DO PCP - General Internal Medicine 06/28/17 documented as of this encounter Additional Source Comments The information contained in this document represents components of the legal health record. It is not the complete legal health record.[facility]
--- OUTSIDE RECORDS SUMMARY | 2025-07-31 08:20 | XMS_ITS | Encounter Summary ---
Author Organization [facility] Address [address] [facility] [address] [place] [address] Phone Care Team Providers Care Specification Writer Name Role Phone LorieauraJoe DO Primary Care Provider [phone] Encounter Details Date Type Department Care Team (Late Contact Info) Description 12/22/2022 Procedure Pass [facility] 30 [place] [address] Social History Tobacco Use Types Packs/Day Years Used Date Smoking Tobacco: Never Smokeless Tobacco: Never Alcohol Use Standard Drinks/Week Comments Yes 14 (1 standard drink = 0.6 oz pu re alcohol) Occasonal Education Answer Date Recorded Are you interested in more education? Not on [place] e 12/25/2022 Are you concerned about learning? Not on file 12/25/2022 No 12/25/2022 No 12/25/2022 Intimate Partner Violence Answer Date R ecorded [...] Description 09/10/2025 10:45 AM EST Office Visit [facility] 22 [facility] 3rd Floor, [address] [place] [address] Hubert Mijares DO 22 [facility] [address] [place] [address] 09/13/2025 1:00 PM EST Office Visit [facility] 10 [facility] [place] [address] Erich Vega MD [address] [address] [email or web address] documented as of this encounter Visit Diagnoses Not on filedocumented in this encounter Care Teams Specification Writer Relationship Specialty Start Date End Date Joe Virgen DO [email or web address] PCP - General Internal Medicine 06/28/17 documented as of this encounter Additional Source Comments The information contained in this document represents components of the legal health record. It is not the complete legal health record.[facility]
--- OUTSIDE RECORDS SUMMARY | 2025-07-31 08:20 | XMS_ITS | Encounter Summary ---
Author Organization [facility] Address [address] [facility] [address] [place] [address] Phone Care Team Providers Care Utility Bag Assembler Name Role Phone LorieJoe chavarria Fela HESS Primary Care Provider [phone] Encounter Details Date Type Department Care Team (Latest Contact Info) Description 10/09/2017 Transcribe Orders [facility] Phleb Main 30 [place], [place] [id number] Bekah Hernandez PA-C [address]. Juan. [address] [place] [address] [email or web address] Chronic kidney disease, unspecified CKD stage (Primary Dx) Social History Tobacco Use Types [...] Description 09/10/2025 10:45 AM EST Office Visit [facility] 22 [facility] 3rd Floor, [address] [place], [place] [phone] Hubert Mijares DO 22 [facility] [address] [place] [address] 09/13/2025 1:00 PM EST Office Visit [facility] 10 [facility] [place] [address] Erich Vega MD [address] [place] [address] [email or web address] documented as of this encounter Procedures Procedure Name Priority Date/Time Associated Diagnosis Comments COMPREHENSIVE METABOLIC PANEL (CMP) Routine 10/09/2017 8:05 AM EST Chronic kidney disease, unspecified CKD stage documented in this encounter Results * (ABNORMAL) Comprehensive metabolic panel (10/09/2017 8:05 AM EST) SODIUM 141 133 - 146 mmol/L [facility] POTASSIUM 4.4 3.3 - 5.1 mmol/L [facility] CHLORIDE 103 96 - 108 mmol/L [facility] CO2 30 21 - 35 mmol/L [facility] BUN 30(H) 6 - 19 mg/dL [facility] CREATININE 1.00 0.5 - 1.5 mg/dL [facility] GLUCOSE 133(H) 70 - 99 mg/dL [facility] ALBUMIN 3.9 3.9 - 4.8 g/dL [facility] TOTAL PROTEIN 6.9 6.5 - 8.0 g/dL [facility] CALCIUM 9.5 8.4 - 10.3 mg/dL [facility] ALKALINE PHOSPHATASE 86 39 - 117 U/L [facility] TOTAL BILIRUBIN 0.3 0 - 1.2 mg/dL [facility] AST 22 0 - 37 U/L [facility] ALT 23 0 - 40 U/L [facility] GLOBULIN 3.0 1 - 4.8 g/dL [facility] EGFR >60 mL/min/1.7 3m2 [facility] Comment:Abnormal if <60. If patient is -Faroese, multiply the result by 1.21. ANION GAP 12 10 - 20 mmol/L [facility] Blood 10/09/2017 8:05 AM EST 10/09/2017 8:08 AM EST Bekah David FRI[facility] LAB BLOOD BKR ORDERABLES Fin al Result [facility] 30 [place] [address] documented in this encounter Visit Diagnoses Diagnosis Chronic kidney disease, unspecified CKD stage- Primary documented in this encounter Care Teams Utility Bag Assembler Relationship Specialty Start Date End Date Joe Virgen DO [email or web address] PCP - General Internal Medicine 06/28/17 documented as of this encounter Additional Source Comments The information contained in this document represents components of the legal health record. It is not the complete legal health record.[facility]
--- OUTSIDE RECORDS SUMMARY | 2025-07-31 08:20 | XMS_ITS | Encounter Summary ---
Author Organization [facility] Address [address] [facility] [address] [place] [address] Phone Care Team Providers Care Special Education Secretary Name Role Phone Lorieaura Joe Fela HESS Primary Care Provider [phone] Encounter Details Date Type Department Care Team ([facility] Contact Info) Description 05/20/2021 Ancillary Orders Virtual Department 30 [place] [address] Lyndsay Wilcox PA 6 [place] [address] Ventral hernia without obstruction or gangrene Social History Tobacco Use Types Packs/Day Years [...] Description 09/10/2025 10:45 AM EST Office Visit [facility] 22 [facility] 3rd Floor, [address] [place] [address] Hubert Mijares DO [address] [address] 09/13/2025 1:00 PM EST Office Visit [facility] 10 [place] [address] Erich Vega MD 10 [facility] 2nd [place] [address] [email or web address] documented as of this encounter Results * US ABDOMEN LIMITED HERNIA (05/20/2021 7:30 AM EDT) Anatomical Region Laterality Modality Abdomen Ultrasound 05/20/2021 8:00 AM EDT Impressions 05/20/2021 8:02 AM EDT *Limitations as above.* No abdominal wall hernia identified. Further imaging evaluation with CT should be made on a clinical basis. Narrative 05/20/2021 8:02 AM EDT COMPARISON: None. LIMITED ABDOMEN ULTRASOUND FINDINGS: *Limited due to bowel gas and habitus.* Imaging obtained of the palpable abdominal wall area which is at least 20 cm in length. Given size of the abnormality ultrasound is limited. No hernia identified. Procedure Note Molina Jacinto MD - 05/20/2021 COMPARISON: None. LIMITED ABDOMEN ULTRASOUND FINDINGS: *Limited due to bowel gas and habitus.* Imaging obtained of the palpable abdominal wall area which is at least 20cm in length. Given size of the abnormality ultrasound is limited. Nohernia identified. IMPRESSION: *Limitations as above.* No abdominal wall hernia identified. Furtherimaging evaluation with CT should be made on a clinical basis. us Lyndsay PELLETIER IMG US ABDOMEN Final Resul t documented in this encounter Visit Diagnoses Diagnosis Ventral hernia without obstruction or gangrene Unspecified ventral hernia without mention of obstruction or gangrene Ventral hernia without obstruction or gangrene Unspecified ventral hernia without mention of obstruction or gangrene documented in this encounter Care Teams Special Education Secretary Relationship Specialty Start Date End Date Joe Virgen DO [email or web address] PCP - General Internal Medicine 06/28/17 documented as of this encounter Additional Source Comments The information contained in this document represents components of the legal health record. It is not the complete legal health record.[facility]
--- OUTSIDE RECORDS SUMMARY | 2025-07-31 08:20 | XMS_ITS | Clinical Summary ---
Author Organization [facility] Address [address] [place] [address] Care Team Providers Care Controls Technician Name Role Phone Joe Virgen DO Primary Care Provider [phone] Allergies Active Allergy Reactions Criticality Noted Date [...] age to complete this topic Care Teams Controls Technician Relationship Specialty Start Date End Date Joe Virgen DO 2 [place] [address] PCP - General Internal Medicine 12/16/17
--- OUTSIDE RECORDS SUMMARY | 2025-07-31 08:20 | XMS_ITS | Encounter Summary ---
Author Organization [facility] Address [address] [facility] [address] [place] [address] Phone Care Team Providers Care Aeronautical Test Engineer Name Role Phone Lorieaura Joe Chahal DO Primary Care Provider [phone] Encounter Details Date Type Department Care Team (Latest Contact Info) Description 11/18/2017 Transcribe Orders [address] [address] Bekah Hernandez PA-C [address] [place] [address] [email or web address] Elevated BUN (Primary Dx); Borderline hyperlipidemia; IFG (impaired fasting glucose) Social History Tobacco Use Types Packs/Day Years [...] Description 09/10/2025 10:45 AM EST Office Visit [facility] 22 [facility] 3rd Floor, [address] [place] [address] Hubert Mijares DO 22 [facility] [address] [place] [address] 09/13/2025 1:00 PM EST Office Visit [facility] Pulmonary, Allergy and Critical Care Medicine 10 [facility] [place] [address] Erich Vega MD 10 [facility] 2nd [place] [address] [email or web address] documented as of this encounter Results * Hemoglobin A1c (09/03/2018 8:02 AM EST) HEMOGLOBIN A1C 5.4 4.3 - 5.8 % [facility] Blood 09/03/2018 8:02 AM EST 09/03/2018 8:04 AM EST us Bekah Hernandez PA-C LAB BLOOD BKR ORDERABLES Fin al Result [facility] [address] [place] [address] * (ABNORMAL) Lipid panel (09/03/2018 8:02 AM EST) HDL 65 mg/dL [facility] Comment: Interpretation <40 mg/dL: Low HDL cholesterol (major risk factor for CHD) Greater than or equal to 60 mg/dL: High HDL cholesterol ( negative risk factor for CHD) HDL - cholesterol is affected by a number of factors, e.g. smoking, excerise, hormones, sex and age. CHOLESTEROL 208 0 - 240 mg/dL [facility] TRIGLYCERIDES 70 30 - 160 mg/dL [facility] LDL 129 50 - 129 mg/dL [facility] Comment: LDL levels in terms of risk for coronary heart disease: <100 mg/dL: Optimal 100-129 mg/dL: Near or above optimal 130-159 mg/dL: Borderline high 160-189 mg/dL: High >190 mg/dL: Very High CARDIAC RISK RATIO 3.2(L) 3.4 - 5.0 [facility] Blood 09/03/2018 8:02 AM EST 09/03/2018 8:04 AM EST us Bekah Hernandez PA-C LAB BLOOD BKR ORDERABLES Fin al Result [address] [address] * Hemoglobin A1c (11/18/2017 7:26 AM EDT) HEMOGLOBIN A1C 5.6 4.3 - 5.8 % [facility] Blood 11/18/2017 7:26 AM EDT 11/18/2017 8:55 AM EDT us November [facility] LAB BLOOD BKR ORDERABLES Fin al Result Performing Organization Address City/[facility] Co de Phone Number [address] [address] * (ABNORMAL) CBC and differential (11/18/2017 7:26 AM EDT) WBC 4.34 3.40 - 11.20 K/uL [facility] RBC 4.18(L) 4.50 - 5.50 M/uL [facility] HGB 12.2(L) 13.0 - 17.0 g/dL [facility] HCT 36.9(L) 40.0 - 51.0 % [facility] PLT 219 130 - 400 K/uL [facility] MCV 88.3 79.0 - 98.0 [facility] MCH 29.2 27.0 - 34.8 pg [facility] MCHC 33.1 31.5 - 36.0 g/dL [facility] RDW 12.3 10.8 - 14.6 % [facility] MPV 9.5 9.4 - 12.4 [facility] NRBC 0.00 /100 WBCs [facility] ABSOLUTE NRBC 0.00 K/uL [facility] DIFF METHOD Auto [facility] NEUTS 61.3 45.30 - 77.70 % [facility] LYMPHS 25.1 12.30 - 39.70 % [facility] MONOS 10.1 4.10 - 12.80 % [facility] EOS 2.8 0 - 7.2 % [facility] BASOS 0.5 0 - 2.80 % [facility] Granulocytes, immature (%) 0.2 0.0 - 0.9 % [facility] ABSOLUTE NEUTS 2.66 1.40 - 7.70 K/uL [facility] ABSOLUTE LYMPHS 1.09 0.60 - 3.20 K/uL [facility] ABSOLUTE MONOS 0.44 0.11 - 0.59 K/uL [facility] ABSOLUTE EOS 0.12 0.01 - 0.50 K/uL [facility] ABSOLUTE BASOS 0.02 0.00 - 0.08 K/uL [facility] Granulocytes, immature 0.01 0.00 - 0.05 K/uL [facility] Blood 11/18/2017 7:26 AM EDT 11/18/2017 8:55 AM EDT us November David [facility]RI[facility] LAB BLOOD BKR ORDERABLES Fin al Result Performing Organization Address City/[facility] Co de Phone Number [address] [address] * (ABNORMAL) Lipid panel (11/18/2017 7:26 AM EDT) HDL 54 mg/dL [facility] Comment: Interpretation: Risk Level Males Decreased >45 mg/dL Average 40-45 mg/dL Increased <40 mg/dL CHOLESTEROL 211 0 - 240 mg/dL [facility] TRIGLYCERIDES 122 30 - 160 mg/dL [facility] LDL 133(H) 50 - 129 mg/dL [facility] Comment: LDL levels in terms of risk for coronary heart disease: <100 mg/dL: Optimal 100-129 mg/dL: Near or above optimal 130-159 mg/dL: Borderline high 160-189 mg/dL: High >190 mg/dL: Very High CARDIAC RISK RATIO 3.9 3.4 - 5.0 [facility] Blood 11/18/2017 7:26 AM EDT 11/18/2017 8:55 AM EDT November David [facility]RI[facility] LAB BLOOD BKR ORDERABLES Fin al Result [address] [address] * (ABNORMAL) Comprehensive metabolic panel (11/18/2017 7:26 AM EDT) SODIUM 140 133 - 146 mmol/L [facility] POTASSIUM 5.5(H) 3.3 - 5.1 mmol/L [facility] CHLORIDE 101 96 - 108 mmol/L [facility] CO2 30 21 - 35 mmol/L [facility] BUN 37(H) 6 - 19 mg/dL [facility] CREATININE 1.10 0.5 - 1.5 mg/dL [facility] GLUCOSE 109(H) 70 - 99 mg/dL [facility] ALBUMIN 4.0 3.9 - 4.8 g/dL [facility] TOTAL PROTEIN 7.2 6.5 - 8.0 g/dL [facility] CALCIUM 9.9 8.4 - 10.3 mg/dL [facility] ALKALINE PHOSPHATASE 80 39 - 117 U/L [facility] TOTAL BILIRUBIN 0.3 0.0 - 1.2 mg/dL [facility] AST 26 0 - 37 U/L [facility] ALT 21 0 - 40 U/L [facility] GLOBULIN 3.2 1 - 4.8 g/dL [facility] EGFR 68 >59 mL/min/1.7 3m2 [facility] Comment:If patient is black, multiply result by 1.159. The eGFR calculation has changed from the MDRD equation to the CKD-EPI equation as of November 02, 2017. ANION GAP 15 10 - 20 mmol/L [facility] Blood 11/18/2017 7:26 AM EDT 11/18/2017 8:55 AM EDT us November David FRIAS LAB BLOOD BKR ORDERABLES Fin al Result [address] [address] documented in this encounter Visit Diagnoses Diagnosis Elevated BUN- Primary Other abnormal blood chemistry Borderline hyperlipidemia IFG (impaired fasting glucose) documented in this encounter Care Teams Aeronautical Test Engineer Relationship Specialty Start Date End Date Joe Virgen DO [email or web address] PCP - General Internal Medicine 06/28/17 documented as of this encounter Additional Source Comments The information contained in this document represents components of the legal health record. It is not the complete legal health record.[facility]
--- OUTSIDE RECORDS SUMMARY | 2025-07-31 08:20 | XMS_ITS | Encounter Summary ---
Author Organization [facility] Address [address] [facility] [address] [place] [address] Phone Care Team Providers Care Supervisor Commissary Production Name Role Phone Joe Virgen DO Primary Care Provider [phone] Reason for Referral * Outpatient Procedure - Closed Specialty Diagnoses / Procedures Referred By Dio estrada Referred To Contact Diagnoses Localized edema Procedures Adult Echo TTE Lyndsay Wilcox PA Phone: tel: fax: Referral ID Status Reason Start Date Expiration Date Visits Re quested Visits Authorized [id number] Closed 04/23/2021 04/23/2022 1 1 Encounter Details Date Type Department Care Team (Latest Contact Info) Description 04/23/2021 Transcribe Orders Virtual Department 30 [place] [address] Lyndsay Wilcox PA [address] [place] [address] [place] [address] Localized edema (Primary Dx) Social History Tobacco Use Types [...] Description 09/10/2025 10:45 AM EST Office Visit [facility] 22 [facility] 3rd Floor, [address] [place] [address] Hubert Mijares DO 22 [facility] [address] [place] [address] 09/13/2025 1:00 PM EST Office Visit [facility] Pulmonary, Allergy and Critical Care Medicine 10 [facility] [place] [address] Erich Vega MD 10 [facility] 2nd [place] [address] [email or web address] documented as of this encounter Results * TTE COMPREHENSIVE W/ LVO CONTRAST (06/09/2021 9:06 AM EDT) Body Surface Area 2.3 m2 Height 172 cm Weight 118 kg Systolic BP 181 mmHg Diastolic BP 74 mmHg Interventricular Septum Thickness 10 mm Left Ventricle Internal Diameter End Diastole 47 42 - 58 mm Left Ventricle Internal Diameter End Systole 29 25 - 40 mm Left Ventricular Outflow Tract Diameter 15.0 mm LVOT VTI REST 261 mm Left Ventricular Outflow Tract Velocity 1.0 m/s Left Ventricular Outflow Tract Gradient at Rest 4 mmHg Left Ventricular Posterior Wall Thickness 12 mm Ejection Fraction 62 50 - 75 Percent Left Atrium Dimension Anterior-Posterior 34 15 - 40 mm Aortic Valve Mean Gradient 24 mmHg Aortic Valve Time Velocity Integral 842 mm Aortic Valve Peak Velocity 308.0 cm/s Aortic Valve Peak Gradient 38 mmHg Aortic Sinus Diameter 30 mm Inferior Vena Cava Diameter 12 0 - 21 mm Mitral Valve A Wave Speed 121.0 cm/s Mitral Valve E Wave Speed 118.0 cm/s Right Ventricle Basal Diameter 23 25 - 41 mm Raw LV EF% 62 % Left Atrial Volume 61 mL Left Atrial Volume Index 26.52 mL/m2 Right Ventricle TAPSE 20.0 mm Right Ventricle Linear Dimension 23 mm Aortic Valve Sinus Index 1 13 20 - 32 mm Aortic Sinus Index 13 mm Anatomical Region Laterality Modality Heart Ultrasound Narrative 06/09/2021 9:44 AM EDT Mild LVH with normal LV systolic function EF 60 to 65%. Mild left atrial enlargement. Elevated E/E prime ratio which may suggest elevated left atrial pressure. Moderate aortic stenosis peak velocity 3.1 mean gradient 23 mmHg. Mild mitral regurgitation. Compared to study from 2019, aortic stenosis has progressed from mild to moderate. Left Ventricle The left ventricle is not well visualized. The left ventricular cavity size and wall thickness are normal. Left ventricular systolic function is normal. The estimated ejection fraction is 62% (Normal 50-75%). The left ventricular ejection fraction was measured by the bi-plane method of discs. Indeterminate diastolic dysfunction. There is no evidence of left ventricular thrombus. Right Ventricle The right ventricular size is normal. The right ventricle measures 23 mm at the base (normal 25-41 mm). The right ventricular systolic function is normal. Left Atrium The left atrium is normal in size. The left atrial anterior-posterior dimension measures 34 mm (normal 15-40 mm). The LA volume is 61 mL. The LA volume index is 26.52 mL/m2 (normal indexed value is 16-34 mL/m2). The pulmonary venous flow profiles are normal. Right Atrium The right atrium is normal in size. The IVC is normal in size (2.1cm or less). The IVC measures 12 mm (normal <=21 mm). The IVC demonstrates normal collapse with inspiration which is consistent with normal RA pressure. Mitral Valve The mitral valve appears normal. The E/A ratio is 1.0. The Med E' Julius is 5.6 cm/s and the Lat E' Julius is 10 cm/s. The E/E' AVG is 15.3. There is no evidence of mitral stenosis. There is posterior mitral annular calcification. There is trace mitral regurgitation detected by spectral and color Doppler. Tricuspid Valve The tricuspid valve appears normal. There is no evidence of tricuspid stenosis. There is evidence of trace tricuspid regurgitation by color and spectral Doppler. There is an insufficient tricuspid regurgitation Doppler profile to calculate a right ventricular systolic pressure. Aortic Valve The aortic valve appears abnormal. The morphology of the valve (tricuspid vs bicuspid) cannot be determined. There is restricted aortic leaflet opening consistent with moderate valvular aortic stenosis. The peak AV velocity is 3.1 m/s. The SALBADOR is 0.55 cm2. The peak aortic valve gradient is 38 mmHg. The mean aortic gradient is 24 mmHg. The aortic valve area was calculated by continuity equation. There is no evidence of aortic regurgitation by color and spectral Doppler. The visualized portions of the thoracic aorta appear normal. Ascending aorta is not well visualized. Pulmonic Valve Pulmonary valve was not well visualized. Pericardium There is no evidence of pericardial effusion. Interatrial Septum The interatrial septum appears normal. General Findings The study was technically difficult (4). Study quality explanation: obesity. Technique(s) used in the evaluation: Color flow Doppler and Spectral Doppler. An echo contrast agent was administered IV, per ASE guidelines.The predominant rhythm during the study was sinus. Comparison Findings Compared to a prior TTE from 01/19/2019 us Lyndsay PELLETIER CV ECHO ORDERABLES Final Re sult documented in this encounter Visit Diagnoses Diagnosis Localized edema- Primary Edema Localized edema Edema documented in this encounter Care Teams Supervisor Commissary Production Relationship Specialty Start Date End Date Joe Virgen DO [email or web address] PCP - General Internal Medicine 06/28/17 documented as of this encounter Additional Source Comments The information contained in this document represents components of the legal health record. It is not the complete legal health record.[facility]
--- OUTSIDE RECORDS SUMMARY | 2025-07-31 08:20 | XMS_ITS | Encounter Summary ---
Author Organization [facility] Address [address] [facility] [address] [place] [address] Phone Care Team Providers Care Signals Intelligence Analyst Name Role Phone LorieJoe chavarria Fela HESS Primary Care Provider [phone] Encounter Details Date Type Department Care Team (Latest Contact Info) Description 08/27/2018 Transcribe Orders [facility] Phle[facility] Main 30 [place], [place] [id number] Bekah Hernandez PA-C [address] [place] [address] [email or web address] Anemia, unspecified type (Primary Dx) Social History Tobacco Use Types [...] Description 09/10/2025 10:45 AM EST Office Visit [facility] [address] [facility] 3rd Floor, [address] [place], [place] [id number] Hubert Mijares DO 22 [facility] [address] [place] [address] 09/13/2025 1:00 PM EST Office Visit [facility] Pulmonary, Allergy and Critical Care Medicine 10 [place] [address] Erich Vega MD [address] [address] [email or web address] documented as of this encounter Visit Diagnoses Diagnosis Anemia, unspecified type- Primary documented in this encounter Care Teams Signals Intelligence Analyst Relationship Specialty Start Date End Date Joe Virgen DO [email or web address] PCP - General Internal Medicine 06/28/17 documented as of this encounter Additional Source Comments The information contained in this document represents components of the legal health record. It is not the complete legal health record.[facility]
--- OUTSIDE RECORDS SUMMARY | 2025-07-31 08:20 | XMS_ITS | Encounter Summary ---
Author Organization [facility] Address [address] [place] [address] [place] [address] Phone Care Team Providers Care Hydraulic Engineer Name Role Phone LorieauraJoe DO Primary Care Provider [phone] Encounter Details Date Type Department Care Team (Late Contact Info) Description 08/04/2017 Procedure Pass OR Admitting Dept - Virtual Department 30 [place] [address] Social History Tobacco Use Types Packs/Day Years [...] Upcoming Encounters Date Type Department Care Team ([facility] Contact Info) Description 09/10/2025 10:45 AM EST Office Visit [facility] [address] [place] [address] 3rd [facility], [address] [place] [address] Hubert Mijares DO [address] [address] 09/13/2025 1:00 PM EST Office Visit [facility] Pulmonary, Allergy and Critical Care Medicine 10 [place] [address] Erich Vega MD [address] [address] [email or web address] documented as of this encounter Visit Diagnoses Not on filedocumented in this encounter Care Teams Hydraulic Engineer Relationship Specialty Start Date End Date Joe Virgen DO [email or web address] PCP - General Internal Medicine 06/28/17 documented as of this encounter Additional Source Comments The information contained in this document represents components of the legal health record. It is not the complete legal health record.[facility]
--- OUTSIDE RECORDS SUMMARY | 2025-07-31 08:20 | XMS_ITS | Encounter Summary ---
Author Organization [facility] Address [address] [facility] [address] [place] [address] Phone Care Team Providers Care Litharge Supervisor Name Role Phone LorieJoe chavarria Fela HESS Primary Care Provider [phone] Encounter Details Date Type Department Care Team ([facility] Contact Info) Description 03/17/2022 Transcribe Orders Virtual Department 30 [place] [address] Orlando Enrique MD [phone] [place] [address] [email or web address] Social History Tobacco Use Types Packs/Day Years Used Date Smoking Tobacco: Never Smokeless Tobacco: Never Alcohol Use Standard Drinks/Week Comments Yes 14 (1 standard drink = 0.6 oz pu re alcohol) Sex and Gender Information Value Date Recorded Sex Assigned at Not on file Legal Sex Male 10:06 PM EDT Gender Identity Not on file Sexual Orientation Not on file documented as of this encounter Plan of Treatment Upcoming Encounters Date Type Department Care Team (Late Contact Info) Description 09/10/2025 10:45 AM EST Office Visit [facility] 22 [facility] 3rd Floor, [address] [place] [address] Hubert Mijares DO [address] [address] 09/13/2025 1:00 PM EST Office Visit [facility], Allergy [facility] Critical [facility] 10 [place] [address] Erich Vega MD [address] [place] [address] [email or web address] documented as of this encounter Visit Diagnoses Not on filedocumented in this encounter Care Teams Litharge Supervisor Relationship Specialty Start Date End Date Joe Virgen DO [email or web address] PCP - General Internal Medicine 06/28/17 documented as of this encounter Additional Source Comments The information contained in this document represents components of the legal health record. It is not the complete legal health record.[facility]
--- OUTSIDE RECORDS SUMMARY | 2025-07-31 08:21 | XMS_ITS | Encounter Summary ---
Author Organization [facility] Address [address] [place] [address] [place] [address] Phone Care Team Providers Care Miter Cutter Name Role Phone Lorieaura Joe Chahal DO Primary Care Provider [phone] Encounter Details Date Type Department Care Team (Late Contact Info) Description 09/01/2021 Procedure Pass [facility]ventional [facility]iology 30 [place] [address] Social History Tobacco Use Types Packs/Day Years [...] Description 09/10/2025 10:45 AM EST Office Visit [facility] [address] [place] [address] 3rd [facility], [address] [place] [address] Hubert Mijares DO [address] [address] 09/13/2025 1:00 PM EST Office Visit [facility], Allergy [facility] Critical [facility] 10 [place] [address] Erich Vega MD [address] [address] [email or web address] documented as of this encounter Visit Diagnoses Not on filedocumented in this encounter Care Teams Miter Cutter Relationship Specialty Start Date End Date Joe Virgen DO [email or web address] PCP - General Internal Medicine 06/28/17 documented as of this encounter Additional Source Comments The information contained in this document represents components of the legal health record. It is not the complete legal health record.[facility]
--- OUTSIDE RECORDS SUMMARY | 2025-07-31 08:21 | XMS_ITS | Encounter Summary ---
Author Organization [facility] Address [address] [place] [address] Phone Care Team Providers Care Lna Name Role Phone LorieauraJoe DO Primary Care Provider [phone] Encounter Details Date Type Department Care Team (Late st Contact Info) Description 01/03/2024 Procedure Pass [facility] Echo Lab 30 [place] [address] Social History Tobacco Use Types Packs/Day Years Used Date Smoking Tobacco: Never Smokeless Tobacco: Never Alcohol Use Standard Drinks/Week Comments Yes 5 (1 standard drink = 0.6 oz pur [...] Description 09/10/2025 10:45 AM EST Office Visit [facility] 22 [facility] 3rd Floor, [address] [place] [address] Hubert Mijares DO 22 [facility] [address] [place] [address] 09/13/2025 1:00 PM EST Office Visit [facility], All[facility] 10 [place] [address] Erich Vega MD [address] [place] [address] [email or web address] documented as of this encounter Visit Diagnoses Not on filedocumented in this encounter Care Teams Lna Relationship Specialty Start Date End Date Joe Virgen DO PCP - General Internal Medicine 06/28/17 documented as of this encounter Additional Source Comments The information contained in this document represents components of the legal health record. It is not the complete legal health record.[facility]
--- OUTSIDE RECORDS SUMMARY | 2025-07-31 08:21 | XMS_ITS | Encounter Summary ---
Author Organization [facility] Address [address] [place] [address] [place] [address] Phone Care Team Providers Care Medical Technologist Microbiology Name Role Phone Joe Virgen DO Primary Care Provider [phone] Encounter Details Date Type Department Care Team (Late Contact Info) Description 04/23/2021 Procedure Pass [facility] Echo Lab 30 [place] [address] Social History Tobacco Use Types Packs/Day Years [...] Description 09/10/2025 10:45 AM EST Office Visit [facility] [address] [place] [address] 3rd [facility], [address] [place] [address] Hubert Mijares DO [address] [address] 09/13/2025 1:00 PM EST Office Visit [facility], Allergy [facility] Critical [facility] 10 [facility] [place] [address] Erich Vega MD 10 [facility] 2nd [place] [address] [email or web address] documented as of this encounter Visit Diagnoses Not on filedocumented in this encounter Care Teams Medical Technologist Microbiology Relationship Specialty Start Date End Date Joe Virgen DO [email or web address] PCP - General Internal Medicine 06/28/17 documented as of this encounter Additional Source Comments The information contained in this document represents components of the legal health record. It is not the complete legal health record.[facility]
--- OUTSIDE RECORDS SUMMARY | 2025-07-31 08:21 | XMS_ITS | Encounter Summary ---
Author Organization [facility] Address [address] [place] [address] [place] [address] Phone Care Team Providers Care Urologic Surgeon Name Role Phone LoriearuaJoe DO Primary Care Provider [phone] Encounter Details Date Type Department Care Team (Late st Contact Info) Description 09/19/2021 Procedure Pass Echo Lab [address] [place] [address] Social History Tobacco Use Types Packs/Day Years [...] Description 09/10/2025 10:45 AM EST Office Visit [facility] [address] [place] [address] 3rd Floor, [address] [place] [address] Hubert Mijares DO [address] [address] 09/13/2025 1:00 PM EST Office Visit [facility] 10 [place] [address] Erich Vega MD [address] [address] [email or web address] documented as of this encounter Visit Diagnoses Not on filedocumented in this encounter Care Teams Urologic Surgeon Relationship Specialty Start Date End Date Lorieaura Joe Chahal DO [email or web address] PCP - General Internal Medicine 06/28/17 documented as of this encounter Additional Source Comments The information contained in this document represents components of the legal health record. It is not the complete legal health record.[facility]
--- OUTSIDE RECORDS SUMMARY | 2025-07-31 08:21 | XMS_ITS | Encounter Summary ---
Author Organization [facility] Address [address] [facility] [address] [place] [address] Phone Care Team Providers Care Seamer Elastic Band Name Role Phone LoireJoe chavarria Fela HESS Primary Care Provider [phone] Encounter Details Date Type Department Care Team (Late st Contact Info) Description 11/24/2024 Prep for Surgery [facility]opedics & Sports Medicine [address] [place] [address] Ramonita Bryant MD [address] [place] [address] Orthopedics & Sports Medicine, [facility] [place], [place] [id number] Social History Tobacco Use Types Packs/Day Years [...] Description 09/10/2025 10:45 AM EST Office Visit [facility] 22 [facility] 3rd Floor, [address] [place] [address] Hubert Mijares DO 22 [facility] [address] [place] [address] 09/13/2025 1:00 PM EST Office Visit [facility] 10 [facility] [place] [address] Erich Vega MD [address] [address] [email or web address] documented as of this encounter Visit Diagnoses Not on filedocumented in this encounter Care Teams Seamer Elastic Band Relationship Specialty Start Date End Date Joe Virgen DO PCP - General Internal Medicine 06/28/17 documented as of this encounter Additional Source Comments The information contained in this document represents components of the legal health record. It is not the complete legal health record.[facility]
--- OUTSIDE RECORDS SUMMARY | 2025-07-31 08:21 | XMS_ITS | Encounter Summary ---
Author Organization [facility] Address [address] [facility] [address] [place] [address] Phone Care Team Providers Care Consumer Educator Name Role Phone LorieauraJoe DO Primary Care Provider [phone] Encounter Details Date Type Department Care Team (Late st Contact Info) Description 04/16/2023 Procedure Pass OR Admitting Dept - Virtual Department 30 [place] [address] Social History Tobacco Use Types Packs/Day Years [...] Description 09/10/2025 10:45 AM EST Office Visit [facility] 22 [facility] 3rd [facility], [address] [place] [address] Hubert Mijares DO [address] [address] 09/13/2025 1:00 PM EST Office Visit [facility] 10 [facility] [address] Erich Vega MD [address] [address] [email or web address] documented as of this encounter Visit Diagnoses Not on filedocumented in this encounter Care Teams Consumer Educator Relationship Specialty Start Date End Date Joe Virgen DO PCP - General Internal Medicine 06/28/17 documented as of this encounter Additional Source Comments The information contained in this document represents components of the legal health record. It is not the complete legal health record.[facility]
--- OUTSIDE RECORDS SUMMARY | 2025-07-31 08:21 | XMS_ITS | Encounter Summary ---
Author Organization [facility] Address [address] [facility] [address] [place] [address] Phone Care Team Providers Care Application Trainer Name Role Phone LorieJoe chavarria Fela HESS Primary Care Provider [phone] Encounter Details Date Type Department Care Team (Late st Contact Info) Description 11/03/2024 Ancillary Orders [facility], X-Ray - [address] [address] Lyndsay Wilcox PA 6 [facility] [place] [address] Shortness of breath (Primary Dx) Social History Tobacco Use Types [...] Description 09/10/2025 10:45 AM EST Office Visit [facility] 22 [facility] 3rd Floor, [address] [place] [address] Hubert Mijares DO 22 [facility] [address] [place] [address] 09/13/2025 1:00 PM EST Office Visit [facility] Allergy [facility] Critical [facility] Medicine 10 [place] [address] Erich Vega MD [address] [place] [address] [email or web address] documented as of this encounter Results * XR CHEST PA AND LATERAL 2 VIEWS (11/03/2024 12:27 PM EST) Anatomical Region Laterality Modality Chest Computed Radiogr aphy 11/03/2024 12:5 3 PM EST Impressions 11/03/2024 12:55 PM EST No acute intrathoracic process is identified. Stable prominence of the central pulmonary arteries. TAVR. Narrative 11/03/2024 12:55 PM EST XR CHEST PA AND LATERAL 2 VIEWS Referring clinician's provided indication for this examination in Epic: Pain COMPARISON: Chest radiography dated February 12, 2022. FINDINGS: Devices/Tubes/Lines: None. Lungs: The lungs are clear. No focal consolidation or pulmonary edema. Pleura: No pleural effusion or pneumothorax. Heart/Mediastinum: The heart size is normal. There is some prominence of the central pulmonary arteries bilaterally, unchanged as compared to the prior examination. No acute mediastinal abnormality is identified. Postprocedural changes of TAVR. Bones/Soft Tissues: Vertebral endplate degenerative changes. Mild spinal curvature convexity to the right. No acute osseous or soft tissue findings are present. Procedure Note Nine, Edwin Curtis MD - 11/03/2024 XR CHEST PA AND LATERAL 2 VIEWS Referring clinician's provided indication for this examination in Epic:Pain COMPARISON: Chest radiography dated February 12, 2022. FINDINGS: Devices/Tubes/Lines: None. Lungs: The lungs are clear. No focal consolidation or pulmonary edema. Pleura: No pleural effusion or pneumothorax. Heart/Mediastinum: The heart size is normal. There is some prominence ofthe central pulmonary arteries bilaterally, unchanged as compared to theprior examination. No acute mediastinal abnormality is identified.Postprocedural changes of TAVR. Bones/Soft Tissues: Vertebral endplate degenerative changes. Mild spinalcurvature convexity to the right. No acute osseous or soft tissue findingsare present. IMPRESSION: No acute intrathoracic process is identified. Stable prominence of the central pulmonary arteries. TAVR. Lyndsay PELLETIER IMG XR CHEST Final Resul t documented in this encounter Visit Diagnoses Diagnosis Shortness of breath- Primary Shortness of breath documented in this encounter Care Teams Application Trainer Relationship Specialty Start Date End Date Joe Virgen DO [email or web address] PCP - General Internal Medicine 06/28/17 documented as of this encounter Additional Source Comments The information contained in this document represents components of the legal health record. It is not the complete legal health record.[facility]
--- OUTSIDE RECORDS SUMMARY | 2025-07-31 08:21 | XMS_ITS | Encounter Summary ---
Author Organization [facility] Address [address] [facility] [address] [place] [address] Phone Care Team Providers Care Clip And Hanger Attacher Name Role Phone LorieauraJoe DO Primary Care Provider [phone] Encounter Details Date Type Department Care Team (Late st Contact Info) Description 11/29/2024 Procedure Pass OR Admitting Dept - Virtual Department 30 [place] [address] Social History Tobacco Use Types Packs/Day Years [...] Description 09/10/2025 10:45 AM EST Office Visit [facility] 22 [facility] [address] [facility], [address] [place] [address] Hubert Mijares DO [address] [address] 09/13/2025 1:00 PM EST Office Visit [facility] 10 [facility] [place] [address] Erich Vega MD [address] [address] [email or web address] documented as of this encounter Visit Diagnoses Not on filedocumented in this encounter Care Teams Clip And Hanger Attacher Relationship Specialty Start Date End Date Joe Virgen DO PCP - General Internal Medicine 06/28/17 documented as of this encounter Additional Source Comments The information contained in this document represents components of the legal health record. It is not the complete legal health record.[facility]
--- OUTSIDE RECORDS SUMMARY | 2025-07-31 08:21 | XMS_ITS | Encounter Summary ---
Author Organization [facility] Address [address] [facility] [place] [facility] [address] [place] [address] Phone Care Team Providers Care Hydraulic Miner Blasting Name Role Phone LorieJoe chavarria Fela HESS Primary Care Provider [phone] Encounter Details Date Type Department Care Team (Latest Contact Info) Description 02/09/2022 Transcribe Orders Virtual Department 30 [place] [address] Lyndsay Wilcox PA 6 [place] [address] Nontoxic single thyroid nodule (Primary Dx) Social History Tobacco Use Types [...] Description 09/10/2025 10:45 AM EST Office Visit [facility] 22 [facility] 3rd Floor, [address] [place] [address] Hubert Mijares DO [address] [address] 09/13/2025 1:00 PM EST Office Visit [facility] 10 [place] [address] Erich Vega MD [address] [place] [address] [email or web address] documented as of this encounter Results * US Thyroid Gland (02/19/2022 1:14 PM EDT) Anatomical Region Laterality Modality Neck, Head, Chest Ultrasound 02/20/2022 1:21 PM EDT Impressions 02/20/2022 1:24 PM EDT Left mid 2.8 cm TR4 thyroid nodule ACR TI-RADS risk category: TR4 (4-6 points) ACR TI-RADS recommendation: Fine needle aspiration. ACR TI-RADS recommendations TR5 (>7 points) - FNA if >1cm, follow-up if 0.5 - 0.9 cm every year for 5 years TR4 (4-6 points) - FNA if >1.5cm, follow-up if 1 - 1.4 cm in 1, 2, 3 and 5 years TR3 (3 points)- FNA if >2.5cm, follow-up if 1.5 - 2.4 cm in 1, 3 and 5 years TR2 (2 points) & TR1 (0 points) - No FNA and no follow-up indicated These guidelines for management of thyroid nodules are based on the ACR Thyroid Ultrasound Reporting Lexicon, October 2016: https://doi.org/10.1016.j.jacr.2017.01.046 Narrative 02/20/2022 1:24 PM EDT US THYROID GLAND History: Thyroid nodule TECHNIQUE: Ultrasound of the thyroid. COMPARISON: There is no prior study available for comparison. FINDINGS: Gland size: Right lobe: 4.5 x 2.8 x 2.4 cm. Left lobe: 5.0 x 3.0 x 2.2 cm. Isthmus: 0.8 cm. Nodules (greater than or equal to 0.5 cm): Thyroid nodule #1: Left thyroid lobe, Mid: 1.7 x 2.8 x 2.0 cm. Solid or almost completely solid (2), hypoechoic (2), pouhy-uslc-nwve (0), smooth (0) nodule with no echogenic foci (0). TR4. Interval growth: Unknown Background echogenicity: Moderately heterogeneous. Vascularity: Normal. Cervical lymphadenopathy: None. Parathyroid adenoma: None. Procedure Note Lubna Whaley MD - 02/20/2022 US THYROID GLAND History: Thyroid nodule TECHNIQUE: Ultrasound of the thyroid. COMPARISON: There is no prior study available for comparison. FINDINGS: Gland size: Right lobe: 4.5 x 2.8 x 2.4 cm. Left lobe: 5.0 x 3.0 x 2.2 cm. Isthmus: 0.8 cm. Nodules (greater than or equal to 0.5 cm): Thyroid nodule #1: Left thyroid lobe, Mid: 1.7 x 2.8 x 2.0 cm. Solid or almost completely solid (2), hypoechoic (2), zotmn-zrqp-sqoa (0),smooth (0) nodule with no echogenic foci (0). TR4. Interval growth:Unknown Background echogenicity: Moderately heterogeneous. Vascularity: Normal. Cervical lymphadenopathy: None. Parathyroid adenoma: None. IMPRESSION: Left mid 2.8 cm TR4 thyroid nodule ACR TI-RADS risk category: TR4 (4-6 points) ACR TI-RADS recommendation: Fine needle aspiration. ACR TI-RADS recommendations TR5 (>7 points) - FNA if >1cm, follow-up if 0.5 - 0.9 cm every year for 5years TR4 (4-6 points) - FNA if >1.5cm, follow-up if 1 - 1.4 cm in 1, 2, 3 and 5years TR3 (3 points)- FNA if >2.5cm, follow-up if 1.5 - 2.4 cm in 1, 3 and 5years TR2 (2 points) & TR1 (0 points) - No FNA and no follow-up indicated These guidelines for management of thyroid nodules are based on the ACRThyroid Ultrasound Reporting Lexicon, October 2016: https://doi.org/10.1016.j.jacr.2017.01.046 us Lyndsay PELLETIER IMG US THYROID Final Resul t documented in this encounter Visit Diagnoses Diagnosis Nontoxic single thyroid nodule- Primary Nontoxic uninodular goiter Nontoxic single thyroid nodule Nontoxic uninodular goiter documented in this encounter Care Teams Hydraulic Miner Blasting Relationship Specialty Start Date End Date Joe Virgen DO [email or web address] PCP - General Internal Medicine 06/28/17 documented as of this encounter Additional Source Comments The information contained in this document represents components of the legal health record. It is not the complete legal health record.[facility]
--- OUTSIDE RECORDS SUMMARY | 2025-07-31 08:21 | XMS_ITS | Encounter Summary ---
Author Organization [facility] Address [address] [facility] [address] [place] [address] Phone Care Team Providers Care Zipper Lining Folder Name Role Phone Joe Virgen DO Primary Care Provider [phone] Reason for Referral * Outpatient Procedure - Closed Specialty Diagnoses / Procedures Referred By Dio estrada Referred To Contact Diagnoses Other abnormalities of heart beat Procedures Adult Echo TTE Elizabeth Cervantes CNP Phone: tel: fax: [email or web address] Referral ID Status Reason Start Date Expiration Date Visits Re quested Visits Authorized [id number] Closed 12/19/2018 12/19/2019 1 1 Encounter Details Date Type Department Care Team (Latest Contact Info) Description 12/19/2018 Transcribe Orders Virtual Department 30 [place] [address] Elizabeth Cervantes CNP [address] [place] [id number] Other abnormalities of heart beat (Primary Dx) Social History Tobacco Use Types [...] Description 09/10/2025 10:45 AM EST Office Visit [facility] 3[facility], [address] [place] [address] Hubert Mijares DO 22 [facility] [address] [place] [address] 09/13/2025 1:00 PM EST Office Visit [facility] 10 [facility] [place] [address] Erich Vega MD [address] [place] [address] [address] [place] [address] [email or web address] documented as of this encounter Results * TTE COMPREHENSIVE W/ LVO CONTRAST (01/19/2019 10:03 AM EDT) Body Surface Area 2.3 m2 Height 171 m Weight 118 kg Systolic BP 161 mmHg Diastolic BP 88 mmHg Left Atrium Dimension Anterior-Posterior 41 15 - 40 mm Interventricular Septum Thickness 10 mm Left Ventricle Internal Diameter End Diastole 62 42 - 58 mm Left Ventricle Internal Diameter End Systole 39 25 - 40 mm Left Ventricular Outflow Tract Diameter 22.0 mm LVOT VTI REST 224.00 mm Left Ventricular Outflow Tract Velocity 1.0 m/s Left Ventricular Outflow Tract Gradient at Rest 4.00 mmHg Left Ventricular Posterior Wall Thickness 9 mm Ejection Fraction 66 50 - 75 Percent Aortic Valve Mean Gradient 14.00 mmHg Aortic Valve Time Velocity Integral 613.00 mm Aortic Valve Peak Velocity 259.0 cm/s Aortic Valve Peak Gradient 27.00 mmHg Aortic Sinus Diameter 28 mm Ascending Aorta Diameter 31 mm Inferior Vena Cava Diameter 18 0.0 - 21 mm Mitral Valve Deceleration Time 187.00 ms Mitral Valve A Wave Speed 118.0 cm/s Mitral Valve E Wave Speed 85.7 cm/s Raw LV EF% 60 % Aortic Valve Sinus Index 1 12 20 - 32 mm Ascending Aorta Diameter 13 mm Aortic Sinus Index 12 mm Ascending Aorta Index 13 mm Anatomical Region Laterality Modality Heart Ultrasound Narrative 01/20/2019 8:47 AM EDT The image quality was fair (3). An echo contrast agent was administered IV, per ASE guidelines Left ventricular systolic function is normal. There are no segmental left ventricular wall motion abnormalities noted. The estimated ejection fraction is 66% (Normal 50-75%). The left ventricular cavity is mildly dilated. Doppler profiles appear consistent with impaired left ventricular relaxation (a sign of diastolic dysfunction). The left atrium is mildly dilated There is restricted aortic leaflet opening consistent with mild valvular aortic stenosis. Peak AoV is 2.6 m/s. There is trace to mild mitral regurgitation Compared to a prior report from 10/13/2011, LVEF remains normal. There is now mild aortic stenosis Left Ventricle The left ventricular cavity is mildly dilated. The left ventricular wall thickness is normal. Left ventricular systolic function is normal. There are no segmental left ventricular wall motion abnormalities noted. The estimated ejection fraction is 66% (Normal 50-75%). The left ventricular ejection fraction was measured by the single dimension method. EF 57 by single plane MOD. Doppler profiles appear consistent with impaired left ventricular relaxation (a sign of diastolic dysfunction). There is no evidence of left ventricular thrombus. Right Ventricle The right ventricular size is normal. No evidence of right ventricular hypertrophy. The right ventricular systolic function is normal. Left Atrium The left atrium is mildly dilated. LA volume index is 32.8 ml/m2. The left atrial anterior-posterior dimension measures 41 mm (normal 15-40 mm). The pulmonary venous flow profiles are normal. Right Atrium The right atrium is borderline dilated. The IVC is normal in size (2.1cm or less). The IVC measures 18 mm (normal <=21 mm). The IVC demonstrates reduced collapse with inspiration which is consistent with elevated RA pressure. Mitral Valve The mitral valve appears normal. There is no evidence of mitral stenosis. E/A ratio is 0.7. E/E' avg is 11.3.Lat E' velocity is 9.1 cm/s. Med E' velocity is 5.98 cm/s. There is posterior and anterior mitral annular calcification. There is trace to mild mitral regurgitation detected by spectral and color Doppler. Tricuspid Valve Tricuspid valve not well visualized. The tricuspid valve appears normal. There is no evidence of tricuspid stenosis. There is evidence of trace tricuspid regurgitation by color and spectral Doppler. There is an insufficient tricuspid regurgitation Doppler profile to calculate a right ventricular systolic pressure. Aortic Valve The aortic valve appears abnormal. The morphology of the valve (tricuspid vs bicuspid) cannot be determined. There is moderate thickening of multiple aortic leaflets. There is restricted aortic leaflet opening consistent with mild valvular aortic stenosis. Peak AoV is 2.6 m/s. The peak aortic valve gradient is 27 mmHg. The mean aortic gradient is 14 mmHg. The aortic valve area was calculated by continuity equation. [place] VTI is 1.4 cm2. There is no evidence of aortic regurgitation by color and spectral Doppler. The visualized portions of the thoracic aorta appear normal. Pulmonic Valve The pulmonary valve appears normal. There is no evidence of pulmonic stenosis. There is no evidence of pulmonary regurgitation by color and spectral Doppler. Pericardium There is no evidence of pericardial effusion. Interatrial Septum The interatrial septum appears normal. General Findings The image quality was fair (3). An echo contrast agent was administered IV, per ASE guidelines.Rhythm is mostly sinus with occasional irregular beats. Comparison Findings Compared to a prior report from 10/13/2011, LVEF remains normal. There is now mild aortic stenosis. us Elizabeth Cervantes COMMUNITY PRODUCT SPECIALIST CV ECHO ORDERABLES Final Re sult documented in this encounter Visit Diagnoses Diagnosis Other abnormalities of heart beat- Primary Other abnormalities of heart beat documented in this encounter Care Teams Zipper Lining Folder Relationship Specialty Start Date End Date Joe Virgen DO [email or web address] PCP - General Internal Medicine 06/28/17 documented as of this encounter Additional Source Comments The information contained in this document represents components of the legal health record. It is not the complete legal health record.[facility]
--- OUTSIDE RECORDS SUMMARY | 2025-07-31 08:21 | XMS_ITS | Encounter Summary ---
Author Organization [facility] Address [address] [facility] [address] [place] [id number] Phone Care Team Providers Care Senior Technical Trainer Name Role Phone Joe Virgen Fela HESS Primary Care Provider [phone] Encounter Details Date Type Department Care Team (Latest Contact Info) Description 02/10/2022 Transcribe Orders Virtual Department [address] [place] [address] Rafael Jimenez MD, MS [address] [address] AGARWAL (dyspnea on exertion) (Primary Dx) Social History Tobacco Use Types [...] Description 09/10/2025 10:45 AM EST Office Visit [facility] [address] [facility] 3rd Floor, [address] [address] Hubert Mijares DO [address] [address] 09/13/2025 1:00 PM EST Office Visit [facility] [address] [facility] [place] [address] Erich Vega MD [address] [facility] 2nd [place] [address] [email or web address] documented as of this encounter Results * XR CHEST PA AND LATERAL 2 VIEWS (02/12/2022 12:54 PM EDT) Anatomical Region Laterality Modality Chest Computed Radiogr aphy 02/12/2022 3:33 PM EDT Impressions 02/12/2022 3:34 PM EDT No acute cardiopulmonary process. Narrative 02/12/2022 3:34 PM EDT XR CHEST PA AND LATERAL 2 VIEWS History: Dyspnea on exertion COMPARISON: Chest radiography 03/21/2026 FINDINGS: Devices/Tubes/Lines: None. Lungs: The lungs are clear. No focal consolidation or pulmonary edema. Pleura: No pleural effusion or pneumothorax. Heart/Mediastinum: There is similar radiographic appearance of cardiomediastinal silhouette. The thoracic aorta is peripherally calcified. Bones/Soft Tissues: Normal. No significant skeletal abnormality. Procedure Note Lubna Whaley MD - 02/12/2022 XR CHEST PA AND LATERAL 2 VIEWS History: Dyspnea on exertion COMPARISON: Chest radiography 03/21/2026 FINDINGS: Devices/Tubes/Lines: None. Lungs: The lungs are clear. No focal consolidation or pulmonary edema. Pleura: No pleural effusion or pneumothorax. Heart/Mediastinum: There is similar radiographic appearance ofcardiomediastinal silhouette. The thoracic aorta is peripherallycalcified. Bones/Soft Tissues: Normal. No significant skeletal abnormality. IMPRESSION: No acute cardiopulmonary process. us Rafael Jimenez MD, MS IMG XR CHEST Final Res ult documented in this encounter Visit Diagnoses Diagnosis AGARWAL (dyspnea on exertion)- Primary Other dyspnea and respiratory abnormality AGARWAL (dyspnea on exertion) Other dyspnea and respiratory abnormality documented in this encounter Care Teams Senior Technical Trainer Relationship Specialty Start Date End Date Joe Virgen DO [email or web address] PCP - General Internal Medicine 06/28/17 documented as of this encounter Additional Source Comments The information contained in this document represents components of the legal health record. It is not the complete legal health record.[facility]
[2025-07-31 13:32] LABS: MANUAL DIFF FLAG NO
[2025-07-31 13:36] LABS: Hematocrit 37.5 % (42.0-52.0); Hemoglobin 12.3 g/dl (14.0-18.0); Imm Gran Abs Auto 0.01 X10*3/uL (0.00-0.03); Imm Gran Pct Auto 0.2 % (0.0-0.4); Lymphocytes Absolute Auto 1.2 X10*3/uL (1.2-4.9); Mean Corpuscular HGB Conc 32.8 g/dl (31.0-36.0); Mean Corpuscular Hemoglobin 29.6 pg (27.0-33.0); Mean Corpuscular Volume 90.4 fL (80.0-98.0); NRBC Abs Auto 0.000 X10*3/uL (0.0-0.012); NRBC Pct Auto 0.0 /100WBC (0.0-0.2); Platelet Count 209 X10*3/uL (160-400); Red Blood Count 4.15 X10*6/uL (4.60-5.80); White Blood Count 4.5 X10*3/uL (4.8-10.8)
[2025-07-31 13:51] LABS: Cholesterol 121 mg/dL (<200); HDL Cholesterol 44 mg/dL (>40); Triglycerides 99 mg/dL (<150)
== END 2025-07-31 08:17 | disposition home or self-care (01) ==
LOC: HO.MANLDS 08:16
PROVIDERS: Visit Provider Physician Assistant
DX: E78.00 Pure hypercholesterolemia, unspecified (principal)
CPT/HCPCS: 36415; 80061; 85025